=== PATIENT | male | born 1935 | race Caucasian/White ===

== ENCOUNTER 2019-08-12 09:12 | Emergency (ER) | payer OTHER, MEDICARE ==
[~2019-08-12] VITALS: Ht 175.3 cm; Wt 95.2 kg
[2019-08-12] MEDS ORDERED: AKWA Tears15 ML BOTHEYES (09:29)
[2019-08-12] MEDS ORDERED: ACET500 PO (09:29)
[2019-08-12] MEDS ORDERED: OMEP20ER PO (09:29)
[2019-08-12] MEDS ORDERED: Simvastatin10 MG PO (09:29)
[2019-08-12] MEDS ORDERED: LEVSOD50 PO (09:30)
[2019-08-12] MEDS ORDERED: LIDO5TO TOP (09:30)
[2019-08-12] MEDS ORDERED: ZESTORETIC 20-1 EAC1 PO (09:30)
[2019-08-12] MEDS ORDERED: EFUDEX40 GM TOP (09:31)
[2019-08-12 10:33] LABS: BASOPHILS ABSOLUTE AUTO 0.03 K/mm3 (0.00-0.23); BASOPHILS PERCENT AUTO 0 % (0-2); EOSINOPHILS PERCENT AUTO 0 % (0-6); Hematocrit 41.2 % (37.0-53.0); Hemoglobin 14.1 g/dL (13.5-17.5); IMMATURE GRAN ABSOLUTE AUTO 0.06 K/mm3 (0.00-0.10); IMMATURE GRAN PERCENT AUTO 0 % (0-1); LYMPHOCYTES ABSOLUTE AUTO 0.52 K/mm3 (0.84-5.20); LYMPHOCYTES PERCENT AUTO 3 % (21-46); MONOCYTES ABSOLUTE AUTO 0.74 K/mm3 (0.16-1.47); MONOCYTES PERCENT AUTO 4 % (4-13); Mean Corpuscular HGB Conc 34.2 g/dL (31.5-36.5); Mean Corpuscular Volume 97 fL (80-100); Mean Platelet Volume 12.1 fL (9.1-12.4); NEUTROPHILS ABSOLUTE AUTO 15.73 K/mm3 (1.96-9.15); NEUTROPHILS PERCENT AUTO 92 % (41-73); Platelet Count 143 K/mm3 (150-400); RDW Coefficient Variation 13.6 % (11.7-14.2); RDW Standard Deviation 48.9 fL (35.1-46.3); Red Blood Cell Count 4.27 M/mm3 (4.30-5.90); White Blood Cell Count 17.08 K/mm3 (4.00-11.30)
[2019-08-12 10:51] LABS: Albumin, Blood 3.1 g/dL (3.4-5.0); Albumin/Globulin Ratio 0.8 (0.8-1.8); Bilirubin, Total 1.1 mg/dL (0.1-1.0); Bun/Creatinine Ratio 20.6 (12.0-20.0); Calcium, Blood 8.4 mg/dL (8.5-10.1); Creatinine, Blood 1.26 mg/dL (0.60-1.20); Globulin, Blood 3.7 g/dL (2.2-4.0); Potassium, Blood 3.8 mmol/L (3.5-5.5); Total Protein, Blood 6.8 g/dL (6.4-8.2)
[2019-08-12 11:48] LABS: Source, Urine Clean Catch
[2019-08-12 11:50] LABS: Bilirubin, Urine Neg (Neg); Blood, Urine 4+ (Neg); Glucose Qualitative, Urine Neg (Neg); Ketones, Urine 1+ (Neg); Leukocyte Esterase, Urine 1+ (Neg); Nitrite, Urine Pos (Neg); Protein, Urine 2+ (Neg); Specific Gravity, Urine 1.015 (1.003-1.022); Urobilinogen, Urine 1+ (Normal); pH, Urine 6.5 (5.0-8.0)
[2019-08-12 12:02] LABS: Appearance, Urine Clear (Clear); Color, Urine Yellow (P-Yellow)
[2019-08-12 12:04] LABS: Amorphous Light (0-Heavy); Bacteria Many /hpf; Mucus Light (0-Heavy); Squamous Epithelial Cells Rare /hpf (Few)
[2019-08-12] MEDS ORDERED: Keflex500 MG PO (12:13)
[2019-08-12] MEDS ORDERED: ONDA4ODT MM (12:13)
[2019-08-12] MEDS ORDERED: TRAM50 PO (12:13)
== END 2019-08-12 13:55 | disposition home or self-care (01) ==
LOC: ER 09:12
PROVIDERS: Physician Assistant
DX: N12 Tubulo-interstitial nephritis, not specified as acute or chronic (principal); Z79.899 Other long term (current) drug therapy
CPT/HCPCS: 36415; 74176; 80053; 81001; 85025; 87077; 87086; 87147; 87186; 96361; 96374; 96375; 99284-25; J2405; J3010; J7030

== ENCOUNTER 2019-08-15 08:31 | Inpatient (IN) | payer OTHER, MEDICARE ==
[~2019-08-15] VITALS: Ht 175.3 cm; Wt 110.0 kg
[~2019-08-15 08:31] MED LIST: ACET500 PO; AKWA Tears15 ML BOTHEYES; EFUDEX40 GM TOP; Keflex500 MG PO; LEVSOD50 PO; LIDO5TO TOP; OMEP20ER PO; ONDA4ODT MM; Simvastatin10 MG PO; TRAM50 PO; ZESTORETIC 20-1 EAC1 PO
[2019-08-15 09:14] LABS: Source, Urine Catheter
[2019-08-15 09:17] LABS: BASOPHILS ABSOLUTE AUTO 0.11 K/mm3 (0.00-0.23); BASOPHILS PERCENT AUTO 1 % (0-2); EOSINOPHILS ABSOLUTE AUTO 0.07 K/mm3 (0.00-0.68); EOSINOPHILS PERCENT AUTO 0 % (0-6); Hematocrit 42.8 % (37.0-53.0); Hemoglobin 14.6 g/dL (13.5-17.5); IMMATURE GRAN ABSOLUTE AUTO 0.27 K/mm3 (0.00-0.10); IMMATURE GRAN PERCENT AUTO 1 % (0-1); LYMPHOCYTES ABSOLUTE AUTO 1.18 K/mm3 (0.84-5.20); LYMPHOCYTES PERCENT AUTO 5 % (21-46); MONOCYTES ABSOLUTE AUTO 1.35 K/mm3 (0.16-1.47); MONOCYTES PERCENT AUTO 6 % (4-13); Mean Corpuscular HGB 32.4 pg (26.0-34.0); Mean Corpuscular HGB Conc 34.1 g/dL (31.5-36.5); Mean Corpuscular Volume 95 fL (80-100); NEUTROPHILS ABSOLUTE AUTO 19.56 K/mm3 (1.96-9.15); NEUTROPHILS PERCENT AUTO 87 % (41-73); Platelet Count 150 K/mm3 (150-400); RDW Standard Deviation 49.1 fL (35.1-46.3); White Blood Cell Count 22.54 K/mm3 (4.00-11.30)
[2019-08-15 09:22] LABS: Mean Platelet Volume 14.5 fL (9.1-12.4)
[2019-08-15 09:28] LABS: Appearance, Urine Hazy (Clear); Bilirubin, Urine Neg (Neg); Blood, Urine 3+ (Neg); Color, Urine Yellow (P-Yellow); Glucose Qualitative, Urine Neg (Neg); Ketones, Urine 1+ (Neg); Leukocyte Esterase, Urine 1+ (Neg); Nitrite, Urine Pos (Neg); Protein, Urine 2+ (Neg); Urobilinogen, Urine 1+ (Normal)
[2019-08-15 09:29] LABS: White Blood Cells, Urine 0-2 /hpf (0-5)
[2019-08-15 09:30] LABS: Albumin, Blood 2.5 g/dL (3.4-5.0); Albumin/Globulin Ratio 0.6 (0.8-1.8); Bilirubin, Total 0.9 mg/dL (0.1-1.0); Bun/Creatinine Ratio 21.7 (12.0-20.0); Calcium, Blood 8.6 mg/dL (8.5-10.1); Creatinine, Blood 3.69 mg/dL (0.60-1.20); Globulin, Blood 4.2 g/dL (2.2-4.0); Potassium, Blood 3.6 mmol/L (3.5-5.5); Total Protein, Blood 6.7 g/dL (6.4-8.2)
[2019-08-15 09:30] LABS: Amorphous Mod (0-Heavy); Bacteria Few /hpf; Mucus Light (0-Heavy); Squamous Epithelial Cells Not Seen /hpf (Few)
[2019-08-15 09:31] LABS: Granular Casts 0-2 /lpf (0); Transitional Epithelial Cells Few /hpf (0-Rare); WBC Cast Rare /lpf (0)
[2019-08-15 09:40] LABS: Troponin I 1.6 ng/mL (0.000-0.040)
[2019-08-15 10:51] LABS: Magnesium, Blood 2.6 mg/dL (1.6-2.4); Phosphorus, Blood 6.5 mg/dL (2.5-4.9)
[2019-08-15 11:31] LABS: International Normalized Ratio 1.05; Prothrombin Time Results 11.2 Sec (9.7-11.5)
[2019-08-15 12:57] LABS: Free Thyroxine 1.28 ng/dL (0.70-1.60)
[2019-08-15 12:58] LABS: Triiodothyronine, Free 1.77 pg/mL (2.18-3.98)
--- NOTE | 2019-08-15 13:21 | NUR ---
ADMIT PT ARRIVED TO ICU 11 FROM ED. PT ALERT, ORIENTED TO PERSON, PLACE, DATE. AMIODARONE INFUSING, HR AFIB IN THE 130-150S. SBP IN THE 60S. DR. DIAZ TO THE BEDSIDE AND GAVE ORDER FOR FLUID BOLUS. IV IN LA WITH SALINE GOING INFILTRATED, POWERGLIDE STARTED BY ISABELLA GEORGES. PT'S SON MICHAEL CALLED AND WAS GIVEN UPDATE. WILL START HEPARIN SOON POWERGLIDE STARTED. DR. CALLES NOTIFIED OF CONSULT.
[2019-08-15] MEDS ORDERED: FISH OIL 1,001000 MG PO (15:18)
[2019-08-15] MEDS ORDERED: ASCO500 PO (15:18)
[2019-08-15] MEDS ORDERED: Garlic Oil1000 MG PO (15:19)
[2019-08-15] MEDS ORDERED: LIDO5TO TOP (15:21)
[2019-08-15] MEDS ORDERED: MELO7.5 PO (15:22)
[2019-08-15] MEDS ORDERED: CENTRUM SILVER1 EAC2 PO (15:22)
[2019-08-15] MEDS ORDERED: OXYM.05NI (15:23)
[2019-08-15] MEDS ORDERED: Aqua Care237 ML TOP (15:25)
[2019-08-15] MEDS ORDERED: Triamcinolone A15 G3 TOP (15:25)
[2019-08-15] MEDS ORDERED: Gormel75 GM TOP (15:26)
--- NOTE | 2019-08-15 16:54 | NUR ---
SHIFT SUMMARY PT HAS BEEN RESTING IN BED SINCE ARRIVAL. HE IS STILL ABLE TO ANSWER ALL ORIENTATION QUESTIONS, BUT WHEN CONVERSING WITH HIM HE CHANGES THE TOPIC INAPPROPRIATELY OR GIVES RANDOM ANSWERS THAT MAKE IT APPEAR HE DOES HAVE SOME CONFUSION. TALKED WITH PT'S SON AND HE STATES THAT PT HAS HAD SOME INCREASING CONFUSION OVER THE LAST FEW YEARS. PT ALSO SEEMS TO BE A LITTLE HARD OF HEARING WELL, WHICH COULD BE CONTRIBUTING. PT'S BP REMAINS SOFT, BUT HAS IMPROVED SINCE THE BOLUS. DR. CALLES CAME BY AND EVALUATED PT. RATE CONTINUES TO BE IN THE 130S. LUNGS CLEAR, RA. DR. DIAZ OK'D FOR PT TO HAVE ICE CHIPS. MARCUM DRAINING DARK YELLOW URINE. CONTINUING TO MONITOR.
--- NOTE | 2019-08-15 21:05 | NUR ---
ASSUMED PT CARE FROM ISABELLA RIOJAS PT SITTING UP IN BED RESTING. AFIB WITH RVR NOTED ON ARCHITECTURAL JOB CAPTAIN. BLOOD PRESSURES SYSTOLIC 90'S WITH MAP'S 70'S. AMIODARONE INFUSING AT 0.5 MG/MIN; HEPARIN AT 13 UNITS/KG/HR. PT APPEARS ALERT AND ORIENTED, BUT WITH NOTED CONFUSION/FORGETFULNESS. PT DENIES ANY DEMENTIA HX AND JUST STATES HE "GETS LOST, BUT HE ALWAYS FINDS A WAY BACK." PT IS VERY PLEASANT AND COOPERATIVE WITH CARES. FAMILY AT BEDSIDE. CALL LIGHT WITHIN REACH.
--- NOTE | 2019-08-16 00:05 | NUR ---
PALLIATIVE CARE/SOCIAL SERVICE CONSULT FAMILY VOICED CONCERNS REGARDING PT NOT BEING ABLE TO WALK THE LAST WEEK SINCE BEING SICK. FAMILY HAS HAD TO ASSIST WITH ADL'S IN WHICH IT HAS BECOME TOO HARD ON THEM PHYSICALLY PT IS COMPLETELY DEPENDENT ON ASSIST. THEREFORE, THEY ARE WANTING PT TO RECEIVE THERAPY HERE IN ORDER TO GET PT BACK TO BASELINE. HOWEVER, THEY ARE ALSO REALISTIC THAT PT MAY NEED MORE THERAPY OUTPATIENTLY WELL. OPTIONS WERE DISCUSSED AND FAMILY IS OKAY WITH PT GOING TO A REHAB FACILITY/FPC IF NEEDED. CONCERNS WERE ALSO MENTIONED REGARDING PT'S WANTING TO LET SON MAKE DECISIONS. THEREFORE, WOULD LIKE TO SPEAK WITH PALLIATIVE CARE IN REGARDS TO MAKING THAT HAPPEN. SON RAISES CONCERN THAT HIS MOM ISN'T ABLE TO STICK WITH HER DECISIONS HIS FATHER, THE PATIENT, IS VERY ASSERTIVE AND INTIMIDATES HER. THEREFORE, SON IS WANTING TO TALK WITH PALLIATIVE CARE IN PRIVATE PRIOR TO SEEING PT TOMORROW.
[2019-08-16 03:21] LABS: BASOPHILS ABSOLUTE AUTO 0.07 K/mm3 (0.00-0.23); BASOPHILS PERCENT AUTO 0 % (0-2); EOSINOPHILS ABSOLUTE AUTO 0.16 K/mm3 (0.00-0.68); EOSINOPHILS PERCENT AUTO 1 % (0-6); Hemoglobin 12.8 g/dL (13.5-17.5); IMMATURE GRAN ABSOLUTE AUTO 0.54 K/mm3 (0.00-0.10); IMMATURE GRAN PERCENT AUTO 3 % (0-1); LYMPHOCYTES ABSOLUTE AUTO 1.22 K/mm3 (0.84-5.20); LYMPHOCYTES PERCENT AUTO 6 % (21-46); MONOCYTES ABSOLUTE AUTO 1.21 K/mm3 (0.16-1.47); MONOCYTES PERCENT AUTO 6 % (4-13); Mean Corpuscular HGB 32.7 pg (26.0-34.0); Mean Corpuscular HGB Conc 34.6 g/dL (31.5-36.5); Mean Corpuscular Volume 94 fL (80-100); Mean Platelet Volume 13.5 fL (9.1-12.4); NEUTROPHILS ABSOLUTE AUTO 18.61 K/mm3 (1.96-9.15); NEUTROPHILS PERCENT AUTO 85 % (41-73); Platelet Count 149 K/mm3 (150-400); RDW Coefficient Variation 14.1 % (11.7-14.2); RDW Standard Deviation 48.9 fL (35.1-46.3); Red Blood Cell Count 3.92 M/mm3 (4.30-5.90); White Blood Cell Count 21.81 K/mm3 (4.00-11.30)
[2019-08-16 03:37] LABS: Albumin, Blood 2.1 g/dL (3.4-5.0); Albumin/Globulin Ratio 0.6 (0.8-1.8); Bilirubin, Total 0.6 mg/dL (0.1-1.0); Bun/Creatinine Ratio 27.4 (12.0-20.0); Calcium, Blood 7.5 mg/dL (8.5-10.1); Creatinine, Blood 3.21 mg/dL (0.60-1.20); Globulin, Blood 3.8 g/dL (2.2-4.0); Potassium, Blood 3.9 mmol/L (3.5-5.5); Total Protein, Blood 5.9 g/dL (6.4-8.2)
--- NOTE | 2019-08-16 06:23 | NUR ---
END OF SHIFT SUMMARY PT SLEPT T/O MOST OF SHIFT. REMAINS AFIB WITH RVR; HR 130-150'S. BLOOD PRESSURES REMAIN STABLE; SEE FLOWSHEET. AMIODARONE GTT CONTINUES AT 0.5MG/MIN AND HEPARIN ADJUSTED PER PHARMACY TO 16 UNITS/KG/HR. DR. DIAZ ORDERED A ONE TIME DOSE OF VANCO PER PHARMACY CONSULT D/T POSITIVE BLOOD CULTURES FOR GRAM POSITIVE COCCI IN CLUSTERS. PT ALSO REMAINS ON ROCEPHIN DAILY. PT HAS BEEN PLEASANT AND COOPERATIVE WITH CARES. ABLE TO MAKE HIS NEEDS KNOWN DESPITE BEING FORGETFUL AND CONFUSED AT TIMES. OCCASIONAL NONSENSICAL SPEECH. SON STAYED AT BEDSIDE ALL NIGHT; APPROPRIATE WITH CARES. CALL LIGHT WITHIN REACH. WILL CONTINUE TO MONITOR UNTIL REPORT IS HANDED OFF TO ONCOMING RN.
--- NOTE | 2019-08-16 09:51 | NUR ---
CARE ASSUMED CARE AND REPORT ASSUMED FROM YONI MASON. PT SLEEPING BUT EASILY AROUSABLE. C/O CHRONIC PAIN TO L ANKLE FROM INJURY YEARS AGO. SON AT BEDSIDE AND UPDATED ON PLAN. AFIB, HR 120-150S. MD CALLES BEDSIDE AT SHIFT CHANGE AND AWARE OF HR AND BP. VERBAL ORDERS TO ADMINISTER DIGOXIN 0.125 IV, MAINTAIN K+ > 4.0, MAINTAIN MAG > 2.0, AND ADMINISTER ORAL AMIODARONE SINCE GTT WILL BE TURNED OFF SOON. LUNG SOUNDS HAVE EXPIRATORY WHEEZES IN UPPER TODD. AFEBRILE. DIGOXIN IVP GIVEN ALONG WITH SUPPLEMENTAL POTASSIUM. MAG LEVEL RAN THIS AM AND IS >2.0. PT REMAINS IN AFIB, HR 120-140. AMIODARONE GTT CONTINUES TO INFUSE AT 0.5MG AT THIS TIME. NS MIV INFUSING AT 75ML/HR PER ORDER. SPO2 95% ON RA. WILL CONTINUE TO MONITOR.
--- NOTE | 2019-08-16 12:45 | NUR ---
met with patients and son to review plan of care. pt is escalating in his behaviours and aggitation at night. is exhaused and frail. [facility] Review with child care nurse. pt does not have a formal diagnosis and willneed cardiac care. dental office manager will follow up with needs for possible placement and medicaid.
--- NOTE | 2019-08-16 15:04 | NUR ---
REASSESSMENT PT WHEEZING THROUGHOUT. ALBUTEROL TREATMENTS ORDERED FOR PRN. PT LUNG SOUNDS IMPROVED AFTER TREATMENT. AMIODARONE GTT DISCONTINUED AT 1300 AFTER 24 HOURS OF INFUSION. PT CONTINUES TO RECEIVE AMIODARONE PO. MD CALLES CALLED WITH UPDATE AT 1500. T.O. TO ADMINISTER METOPROLOL 25 MG PO ONCE AND CONTINUE AMIODARONE SINCE BP HAS INCREASED. LAST FEW MAPS RANGE FROM 90-110. WILL CONTINUE TO MONITOR.
--- NOTE | 2019-08-16 16:51 | NUR ---
Echocardiogram completed.
--- NOTE | 2019-08-16 17:00 | NUR ---
Echocardiogram completed.
--- NOTE | 2019-08-16 18:16 | NUR ---
SHIFT SUMMARY PT HAS REMAINED IN BED DURING SHIFT DUE TO FATIGUE AND ELEVATED HR. HAS REMAINED IN AFIB, HR 100-150 THROUGHOUT SHIFT. AMIODARONE GTT INFUSED UNTIL 1300 TODAY AND PT HAS NOW TRANSITIONED TO ORAL. DIGOXIN GIVEN THIS AM; NO CHANGE. ESMOLOL GTT STARTED THIS EVENING; INFUSING AT 25 MCG/KG AT THIS TIME. FAMILY UPDATED THROUGHOUT DAY. LUNG SOUNDS WHEEZY INTERMITTENTLY DURING SHIFT. PT HAS RECIEVED ALBUTEROL TREATMENT NEEDED. HEPARIN GTT CONTINUES TO INFUSE. PT HAS COMPLAINED OF L FOOT AND ANKLE PAIN WITH ANY PALPATION OR MOVEMENT; XRAYS OBTAINED. PT STATES HE HAS NOT HAD BOWEL MOVEMENT IN APPROX 5-6 DAYS; WILL START BOWEL REGIMEN THIS EVENING. PT REFUSED BEDBATH AND LINEN CHANGE TODAY. AFEBRILE DURING SHIFT. ECHO OBTAINED. WILL GIVE BEDSIDE, HANDOFF REPORT TO SHAE MASON.
--- NOTE | 2019-08-16 19:15 | NUR ---
ASSUMED CARE BEDSIDE REPORT RECIEVED. PT IS LAYING IN BED, AWAKE, ALERT, AND ORIENTED. PT CONFUSED AT TIMES. NO FAMILY AT BEDSIDE. PT REPORTS EXTREME PAIN TO LEFT LOWER EXTREMITY WITH TOUCH OR MOVEMENT. VITAL SIGNS STABLE. PT ON ROOM AIR. HR AFIB 110-130'S. ESMOLOL GTT INFUSING AT 25 MCG/KG/MIN. HEPARIN GTT INFUSING AT 18 UNITS/KG/HR. MARCUM IN PLACE WITH YELLOW OUTPUT NOTED. WILL CONTINUE TO MONITOR.
--- NOTE | 2019-08-17 00:55 | NUR ---
CONVERTED TO NSR PT NOTED TO CONVERT FROM AFIB TO NSR IN THE 60'S AT 0040. ESMOLOL GTT TURNED OFF AT THIS TIME. BP STABLE.
[2019-08-17 03:42] LABS: Hematocrit 35.7 % (37.0-53.0); Hemoglobin 12.2 g/dL (13.5-17.5); Mean Corpuscular HGB 32.4 pg (26.0-34.0); Mean Corpuscular HGB Conc 34.2 g/dL (31.5-36.5); Mean Corpuscular Volume 95 fL (80-100); Mean Platelet Volume 12.9 fL (9.1-12.4); Platelet Count 213 K/mm3 (150-400); RDW Coefficient Variation 14.3 % (11.7-14.2); RDW Standard Deviation 49.9 fL (35.1-46.3); Red Blood Cell Count 3.76 M/mm3 (4.30-5.90)
[2019-08-17 03:58] LABS: Bun/Creatinine Ratio 30.5 (12.0-20.0); Calcium, Blood 7.7 mg/dL (8.5-10.1); Creatinine, Blood 2.49 mg/dL (0.60-1.20); Magnesium, Blood 2.7 mg/dL (1.6-2.4); Phosphorus, Blood 4.3 mg/dL (2.5-4.9); Potassium, Blood 3.8 mmol/L (3.5-5.5)
[2019-08-17 04:37] LABS: BAND PERCENT MAN 7 % (0-8); BASOPHILS PERCENT MAN 0 % (0-2); EOSINOPHILS PERCENT MAN 0 % (0-6); LYMPHOCYTES PERCENT MAN 4 % (21-46); METAMYELOCYTE PERCENT MAN 2 % (0-0); MONOCYTES ABSOLUTE MAN 0.75 K/mm3 (0.16-1.47); MONOCYTES PERCENT MAN 3 % (4-13); MYELOCYTE ABSOLUTE MAN 0.25 K/mm3 (0.00-0.00); MYELOCYTE PERCENT MAN 1 % (0-0); NEUTROPHILS ABSOLUTE MAN 22.59 K/mm3 (1.96-9.15); SEG NEUTROPHILS PERCENT MAN 83 % (41-73); TOTAL CELLS COUNTED 100
--- NOTE | 2019-08-17 05:42 | NUR ---
SHIFT SUMMARY NO ACUTE CHANGES THIS SHIFT. PT HAS REMAINED AWAKE FOR MOST OF THE NIGHT. PT IS ALERT AND ORIENTED WITH SOME PERIODS OF CONFUSION. VITAL SIGNS HAVE REMAINED STABLE. PT HAS REMAINED IN NSR, HR 60-70'S. ESMOLOL GTT REMAINS ON STANDBY. PT ON ROOM AIR. PG TO LV C/D/I. HEPARIN GTT INFUSING AT 18 UNITS/KG/HR PER PHARMACY. PT ASSISTED WITH REPOSITIONING. PT CONTINUES TO HAVE PAIN AND SENSITIVITY TO LEFT LOWER EXTREMITY. PT MED PER EMAR, AND ICE APPLIED TO LEFT ANKLE PT WOULD TOLERATE. LEFT ANKLE REMAINS SWOLLEN, UNCHANGED SINCE BEGINNING OF SHIFT. NO FAMILY AT BEDSIDE AT THIS TIME. WILL CONTINUE TO MONITOR AND REPORT OFF TO ONCOMING RN.
--- NOTE | 2019-08-17 08:59 | NUR ---
DR. BOOTHE SPOKE WITH DR. BOOTHE REGARDING CONVERSION TO NORMAL SINUS RHYTHM. PREVIOUSLY CONSIDERED MOHIT AND CARDIOVERSON CANCELLED. OK TO EAT PER DR. BOOTHE.
--- NOTE | 2019-08-17 09:30 | NUR ---
CARE ASSUMED REPORT RECEIVED, CARE ASSUMED AT 0700 FROM ISABELLA OLVERA. PT ASLEEP DURING REPORT, SON AT BEDSIDE. VITALS STABLE. SEE SHIFT ASSESSMENT. BEDBATH COMPLETE PT REPORTS THINKING HE HAS HAD A BOWEL MOVEMENT. NO BOWEL MOVEMENT PRESENT. SETUP ASSIST FOR BREAKFAST, PT REPORTS MINIMAL APPETITE. MEDS TAKEN IN APPLESAUCE VERY SLOWLY PT BECOMES SHORT OF BREATH AFTER EACH BITE. STATES HE WILL WORK ON BREAKFAST SLOWLY, BUT WANTS TO TAKE NAPS IN BETWEEN. SETUP ASSIST WITH BED CONTROLS, PT AGREES TO ENSURE HEAD IS UP WHILE EATING. CALL LEFT ALSO LEFT IN REACH.
--- NOTE | 2019-08-17 11:04 | NUR ---
DR. MJ BARKER TO BEDSIDE FOR ASSESSMENT
--- NOTE | 2019-08-17 13:30 | NUR ---
briefly met with son. he is optimistic about his fathers progress. will update plan of care on monday will need intermediate plan he is high risk for readmission.
--- NOTE | 2019-08-17 14:53 | NUR ---
DR. NOREEN SORTO TO BEDSIDE FOR ASSESSMENT. PLAN FOR TRANSFER TO PCU
--- NOTE | 2019-08-17 17:00 | NUR ---
DR. TL BOOTHE TO BEDSIDE FOR ASSESSMENT. SPOKE WITH PT REGARDING HIS NEED FOR VALVE REPLACEMENT ONCE INFECTION IMPROVES. FOR NOW, CONTINUE WITH CURRENT PLAN OF CARE. SEE DR. BOOTHE PROGRESS NOTE.
--- NOTE | 2019-08-17 19:34 | NUR ---
SUMMARY VITALS STABLE. HEPARIN GTT CONTINUES PER PHARMACY TITRATION. CONFIRMED WITH DR. BOOTHE TO KEEP ON UNTIL PO ANTICOAGULATION IS STARTED. SON AT BEDSIDE AND INVOLVED IN CARE. PT EXPRESSING NEEDS CLEARLY. PT BECOMES SHORT OF BREATH WITH ADL'S. PT/OT EVALUATION FOR TOMORROW. PT HAS HAD SOMEWHAT BETTER APPETITE THIS EVENING, AND IS FEEDING HIMSELF MORE THAN HE HAD DURING BREAKFAST. HE REPORTS FEELING SOME IMPROVEMENT. GOOD OUTPUT FROM MARCUM CATHETER. STILL NO BOWEL MOVEMENT, SEE EMAR FOR BOWEL CARE REGIME.
--- NOTE | 2019-08-17 19:37 | NUR ---
REPORT TO ISABELLA ORONA TO ASSUME CARE
--- NOTE | 2019-08-17 21:22 | NUR ---
PT RESTING QUIETLY RECLINING IN BED, DENIES N/V, DENIES CP/PRESSURE, STATES THAT HIS BREATHING IS OK, STATES THAT HIS PAIN IS WELL CONTROLLED WITH POSITIONING AT THIS TIME HOWEVER IS AGREEABLE TO TRAMADOL AND TYLENOL IN ORDER TO PROMOTE COMFORT FOR SLEEP. HE IS SPEAKING IN SHORT SENTENCES, MODERATE INCREASED WORK OF BREATHING IS VISIBLE WITH INCREASED ACTIVITY, NO INCREASED WORK OF BREATHING IS NOTED WITH PT AT REST, SATS ARE MID 90S ON ROOM AIR, RESP RATE HIGH TEENS LOW 20S. HRR, SINUS ON MONITOR, RATE 70S AT THIS TIME, PRESSURE MAINTAINING, TRACE TO +1 EDEMA IS NOTED GENERALIZED, NON-PITTING, SKIN IS PWD WITH BRISK CAP REFILL AT THIS TIME. ABD FIRM, ACTIVE BOWEL TONES X 4, NO GRIMACING OR GUARDING WITH PALPATION, PT DENIES PAIN. MARCUM CATH IN PLACE DRAINING CLEAR DARK YELLOW URINE TO GRAVITY, CATH CARE DONE AT THIS TIME.
--- NOTE | 2019-08-18 06:48 | NUR ---
PT RESTS QUIETLY THROUGHOUT SHIFT, REPORTS THAT HE SLEPT WELL, VITAL SIGNS REMAIN STABLE, PT DOES USE CALL LIGHT APPROPRIATELY THROUGHOUT NOC TO MAKE NEEDS KNOWN, REQUESTS TURNS APPROXIMATELY EVERY HOUR WHILE AWAKE. LUNGS CONT WITH INTERMITTENT EXPIRATORY WHEEZES HOWEVER PT DOES MAINTAIN SATS ON ROOM AIR TO MID 90S, MILD INCREASED WORK OF BREATHING WITH ASSISTED POSITION CHANGE, MODERATE INCREASED WORK OF BREATHING WITH 1 ASSIST WITH POSITION CHANGES. CONTINUES IN SINUS RHYTHM, PRESSURE MAINTAINING. BOWEL MOVEMENT X 2 THIS SHIFT BOTH SMALL BROWN, PT REPORTS SECOND BM "LITTLE ROUGH" OTHERWISE NO ACUTE CHANGES THIS SHIFT.
[2019-08-18 06:58] LABS: Hematocrit 34.4 % (37.0-53.0); Hemoglobin 11.9 g/dL (13.5-17.5); Mean Corpuscular HGB 32.4 pg (26.0-34.0); Mean Corpuscular HGB Conc 34.6 g/dL (31.5-36.5); Mean Corpuscular Volume 94 fL (80-100); Mean Platelet Volume 12.5 fL (9.1-12.4); Platelet Count 254 K/mm3 (150-400); RDW Coefficient Variation 14.4 % (11.7-14.2); RDW Standard Deviation 50.1 fL (35.1-46.3); Red Blood Cell Count 3.67 M/mm3 (4.30-5.90); White Blood Cell Count 28.27 K/mm3 (4.00-11.30)
[2019-08-18 07:14] LABS: Albumin, Blood 2.1 g/dL (3.4-5.0); Anion Gap 11 mmol/L (6-16); Blood Urea Nitrogen 66 mg/dL (8-24); Bun/Creatinine Ratio 34.6 (12.0-20.0); CO2, Blood 18 mmol/L (21-32); Chloride, Blood 105 mmol/L (98-108); Creatinine, Blood 1.91 mg/dL (0.60-1.20); Glomerular Filtration Rate 36 (60-); Glucose, Blood 121 mg/dL (70-99); Potassium, Blood 3.6 mmol/L (3.5-5.5); Sodium, Blood 134 mmol/L (136-145)
[2019-08-18 07:33] LABS: BAND PERCENT MAN 10 % (0-8); BASOPHILS PERCENT MAN 0 % (0-2); EOSINOPHILS ABSOLUTE MAN 0.28 K/mm3 (0.00-0.68); EOSINOPHILS PERCENT MAN 1 % (0-6); LYMPHOCYTES ABSOLUTE MAN 1.41 K/mm3 (0.84-5.20); LYMPHOCYTES PERCENT MAN 5 % (21-46); METAMYELOCYTE ABSOLUTE MAN 0.56 K/mm3 (0.00-0.00); METAMYELOCYTE PERCENT MAN 2 % (0-0); MONOCYTES ABSOLUTE MAN 2.82 K/mm3 (0.16-1.47); MONOCYTES PERCENT MAN 10 % (4-13); MYELOCYTE ABSOLUTE MAN 1.13 K/mm3 (0.00-0.00); MYELOCYTE PERCENT MAN 4 % (0-0); NEUTROPHILS ABSOLUTE MAN 22.05 K/mm3 (1.96-9.15); SEG NEUTROPHILS PERCENT MAN 68 % (41-73); TOTAL CELLS COUNTED 100
--- NOTE | 2019-08-18 08:57 | NUR ---
CARE ASSUMED REPORT RECEIVED, CARE ASSUMED AT 0700 FROM ISABELLA ORONA. PT ASLEEP ON ROUNDS, AROUSES EASILY FOR ASSESSMENT. VITALS STABLE. AUDIBLE WHEEZES WORSE FROM YESTERDAY. PT TAKING LONGER TO RECOVER AFTER ADL'S. PT REPORTS FEELING VERY SLEEPY TODAY, MINIMAL APPETITE. AGREEABLE TO TAKE PILLS WITH APPLESAUCE, BUT DECLINES FURTHER BREAKFAST. SAID HE WILL EAT ON IT AFTER A NAP. EDUCATED PT REGARDING PLAN OF CARE, CURRENT ILLNESS, MEDICATIONS AND SIDE EFFECTS. PT AGREEABLE BUT CONTINUES TO REQUEST NAP AT THIS TIME. QUIET TIME PROVIDED. SON AT BEDSIDE AND PROVIDING ENCOURAGEMENT/SUPPORT TO PATIENT. HEPARIN GTT CONTINUES PER ORDERS.
--- NOTE | 2019-08-18 14:20 | NUR ---
SUMMARY SINCE PREVIOUS NOTE, PT HAS CONTINUED TO BE ALERT AND ORIENTED BUT HAS LITTLE MOTIVATION. PT REPORTS FEELING EXTREMELY SLEEPY AND REQUESTING TO NAP MAJORITY OF DAY AND AFTERNOON. ENCOURAGED PT TO EAT, REPOSITION AND DO EXERCISES IN BED. PT'S SON, MICHAEL AT BEDSIDE AND ENCOURAGING PATIENT. PT HAD OTHER VISITORS IN THIS MORNING ALSO. DR. BOOTHE TO BEDSIDE FOR REPEAT ASSESSMENT AND TO DISCUSS PLAN. VITALS STABLE THROUGHOUT SHIFT. PT EDUCATED THROUGHOUT DAY AND AGREEABLE TO PLAN OF CARE. PT TRANSPORTED BY [facility] WITH HEPARIN GTT INFUSING PER ORDERS. PT'S SONMICHAEL AT SIDE.
--- NOTE | 2019-08-18 14:25 | NUR ---
TRANSFER PT MADE MEDICAL STATUS WITH TELEMETRY PER DR. BARKER. NOTIFIED BY LOL[facility], CHARGE TO THAN PT TO TRANSFER TO ROOM 230. REPORT GIVEN TO RN TO ASSUME CARE AT THIS TIME.
--- NOTE | 2019-08-18 15:38 | NUR ---
ARRIVAL TO UNIT PT ARRIVAL TO UNIT FROM ICU. ALERT AND ORIENTED X4, BUT IS FORGETFUL AT TIMES. BED ALARM IN PLACE FOR SAFETY. PT REPOSITIONED FOR COMFORT WITH PILLOWS UNDER X4 EXTREMITIES. HEP GTT INFUSNG PER ORDERS. ATTENDS IN PLACE AND ARE CLEAN AND DRY. MARCUM REMOVED IN ICU BEFORE ARRIVAL TO UNIT. URINAL A BEDSIDE. PT DENIES PAIN. LUNGS ARE WHEEZY T/O, BUT PT DENIES SOB AND SATS STABLE ON RA. ORIENTED TO ROOM AND UNIT. PT'S SON MICHAEL AT BEDSIDE FOR A SHORT TIME AND HAD TO LEAVE FOR WORK. CALL LIGHT WITHIN REACH.
[2019-08-19 05:32] LABS: Hematocrit 34.7 % (37.0-53.0); Mean Corpuscular HGB 32.9 pg (26.0-34.0); Mean Corpuscular HGB Conc 34.6 g/dL (31.5-36.5); Mean Corpuscular Volume 95 fL (80-100); Mean Platelet Volume 11.8 fL (9.1-12.4); Platelet Count 301 K/mm3 (150-400); RDW Coefficient Variation 14.4 % (11.7-14.2); Red Blood Cell Count 3.65 M/mm3 (4.30-5.90); White Blood Cell Count 32.62 K/mm3 (4.00-11.30)
[2019-08-19 06:03] LABS: Albumin, Blood 2.1 g/dL (3.4-5.0); Anion Gap 10 mmol/L (6-16); Blood Urea Nitrogen 55 mg/dL (8-24); CO2, Blood 20 mmol/L (21-32); Chloride, Blood 107 mmol/L (98-108); Creatinine, Blood 1.57 mg/dL (0.60-1.20); Glomerular Filtration Rate 45 (60-); Glucose, Blood 112 mg/dL (70-99); Phosphorus, Blood 3.4 mg/dL (2.5-4.9); Potassium, Blood 3.8 mmol/L (3.5-5.5); Sodium, Blood 137 mmol/L (136-145)
--- NOTE | 2019-08-19 07:25 | NUR ---
SHIFT SUMMARY PT RESTED MINIMALLY THIS NOC SHIFT. AAOX4. BACK DISCOMFORT DECREASED WITH TRAMADOL X1 THIS AM WITH GREAT AFFECT. NO NAUSEA/EMESIS. HEPARIN GTT INFUSING + NEW IV TO RUE FOR ABX. FREQUENT TURNS + INCONTINENT IN ATTENDS AT TIMES, ASSISTED WITH URINAL FOR OTHERS. NO ACUTE CHANGES OVER NIGHT. PT RESTING NOW THIS AM WITH CALL LIGHT IN REACH. REPORT TO DAY SHIFT RN.
--- NOTE | 2019-08-19 10:48 | NUR ---
DR CALLES IN TO SEE PT.
--- NOTE | 2019-08-19 16:00 | NUR ---
SUMMARY TURNING OVER CARE TO ARABELLA Elliott RN. NO ACUTE CHANGES T/O SHIFT. PT WORKED W/PT/OT. SAT UP IN CHAIR FOR BREAKFAST. NOW RESTING IN BED. MEDICATED PER ORDERS FOR 9 BACK PAIN W/TRAMADOL. LABS DRAWN FROM [facility] PER PROTOCOL. IVS FLUSH W/O DIFFICULTY. HEPARIN DRIP INFUSING PER ORDERS. CALL LIGHT IN REACH.
--- NOTE | 2019-08-19 19:26 | NUR ---
NO CHANGE SINCE RECEIVED REPORT FROM ISABELLA ACOSTA. REPORT GIVEN TO NOC ISABELLA CORTES
--- NOTE | 2019-08-20 04:37 | NUR ---
SHIFT SUMMARY: PT A&O X4. VSS. TELE SHOWS SINUS RHYTHM WITH FIRST DEGREE BLOCK. NO ADJUSTMENTS MADE TO HEPARIN GTT THIS SHIFT. INFUSING PER ORDERS. PT REPORTS OCC BACK PAIN WHICH HAS BEEN MANAGED WITH PO PAIN MEDS. REPOSITIONED T/O NIGHT. INCONTINENT WITH ATTENDS CHANGED PRN. VOIDING WELL. ЕЛЕНА PO MEDS IN APPLESAUCE. PT C/O SOB ONCE THIS SHIFT WHICH RESOLVED AFTER ELEVATED HOB. LUNGS CLEAR AND DIMINISHED THROUGHOUT.
[2019-08-20 05:01] LABS: Bun/Creatinine Ratio 37.4 (12.0-20.0); Calcium, Blood 8.2 mg/dL (8.5-10.1); Creatinine, Blood 1.47 mg/dL (0.60-1.20); Magnesium, Blood 2.5 mg/dL (1.6-2.4); Potassium, Blood 3.9 mmol/L (3.5-5.5)
--- NOTE | 2019-08-20 06:22 | NUR ---
HEP GTT ADJUSTED AT THIS TIME PER ORDERS
--- NOTE | 2019-08-20 08:35 | NUR ---
UPON ASSESSMENT THIS AM PT REPORTS SOB AND IS SITTING UP RIGHT IN BED. VSS AND NO ACUTE CHANGES IN TELE PER FANS CLERK CLAUDIA. PT DOES NOT APPEAR TO HAVE INCREASED WOB OR TO BE IN ANY ACUTE DISTRESS. LUNGS AT DIM AT BASES, SLIGHT CRACKLES HEARD AT LLL, OTHERWISE LUNGS CLEAR. PER NOC ISABELLA CORTES, PT RECEIVED BREATHING TX RECENTLY. DR. MENDOZA NOTIFED OF THESE FINDINGS, NO NEW ORDERS AT TIME, WILL CTM PT STATUS.
[2019-08-20 09:39] LABS: Hematocrit 35.3 % (37.0-53.0); Mean Corpuscular HGB 32.7 pg (26.0-34.0); Mean Corpuscular Volume 96 fL (80-100); Mean Platelet Volume 11.7 fL (9.1-12.4); Platelet Count 346 K/mm3 (150-400); RDW Coefficient Variation 14.6 % (11.7-14.2); RDW Standard Deviation 51.7 fL (35.1-46.3); Red Blood Cell Count 3.67 M/mm3 (4.30-5.90); White Blood Cell Count 36.81 K/mm3 (4.00-11.30)
[2019-08-20 10:11] LABS: BAND PERCENT MAN 1 % (0-8); BASOPHILS PERCENT MAN 0 % (0-2); EOSINOPHILS ABSOLUTE MAN 0.36 K/mm3 (0.00-0.68); EOSINOPHILS PERCENT MAN 1 % (0-6); LYMPHOCYTES PERCENT MAN 6 % (21-46); METAMYELOCYTE ABSOLUTE MAN 0.73 K/mm3 (0.00-0.00); METAMYELOCYTE PERCENT MAN 2 % (0-0); MONOCYTES PERCENT MAN 3 % (4-13); MYELOCYTE ABSOLUTE MAN 4.04 K/mm3 (0.00-0.00); MYELOCYTE PERCENT MAN 11 % (0-0); NEUTROPHILS ABSOLUTE MAN 27.97 K/mm3 (1.96-9.15); PROMYELOCYTE ABSOLUTE MAN 0.36 K/mm3 (0.00-0.00); PROMYELOCYTE PERCENT MAN 1 % (0-0); SEG NEUTROPHILS PERCENT MAN 75 % (41-73); TOTAL CELLS COUNTED 100
--- NOTE | 2019-08-20 10:56 | NUR ---
assumed care of patient at 0900 for Brenda MASON. Pt dozing off and on reports feeling better regarding his sob earlier. no acute distress noted, family at bedside.
--- NOTE | 2019-08-20 14:09 | NUR ---
HEPERIN DOSE CHANGED AT THIS TIME TO 29.9ML/HR PER PHARMACY
--- NOTE | 2019-08-20 19:33 | NUR ---
SUMMARY: NO ACUTE CHANGE TODAY. VSS, A/0, USING CALL LIGHT. TELE WNL. PT DID NOT COMPLAIN OF SOB THE REMAINDER OF SHIFT. ABLE TO WALK IN MORENO WITH PHYSICAL THERAPY, SEE NOTE. HEPARIN DRIP CONTINUES TO INFUSE THROUGH POWERGLIDE. PT FAMILY IN ROOM VARIOUS TIMES TODAY. PT TURNED AND ATTENDS CHANGED PRN. NO SAFETY CONCERNS AT THIS TIME. REPORT GIVEN TO SHAE MASON, SEBASTIAN
--- NOTE | 2019-08-21 05:53 | NUR ---
SHIFT SUMMARY: PT REPORTS TO BE FEELING BETTER THIS SHIFT. GIVEN ULTRAM FOR BACK PAIN. PT REPOSITIONED THROUGHOUT NIGHT. OUT OF BED TO BEDSIDE COMMODE THIS MORNING. PT HAD 1 SMALL BM. INCONTINENT AND VOIDING IN ATTENDS. VSS. HOSPITALIST NOTOFIED THIS SHIFT OF TRENDING HIGH WBC'S. THIS IS TO BE EXPECTED D/T PT RECIEVING DAILY STEROIDS. NO NEW ORDERS.
[2019-08-21 08:51] LABS: Hematocrit 34.8 % (37.0-53.0); Hemoglobin 11.8 g/dL (13.5-17.5); Mean Corpuscular HGB 32.7 pg (26.0-34.0); Mean Corpuscular HGB Conc 33.9 g/dL (31.5-36.5); Mean Corpuscular Volume 96 fL (80-100); Mean Platelet Volume 11.6 fL (9.1-12.4); Platelet Count 350 K/mm3 (150-400); RDW Coefficient Variation 14.6 % (11.7-14.2); RDW Standard Deviation 51.2 fL (35.1-46.3); Red Blood Cell Count 3.61 M/mm3 (4.30-5.90); White Blood Cell Count 38.62 K/mm3 (4.00-11.30)
[2019-08-21 09:05] LABS: Bun/Creatinine Ratio 36.6 (12.0-20.0); Calcium, Blood 8.2 mg/dL (8.5-10.1); Creatinine, Blood 1.34 mg/dL (0.60-1.20)
[2019-08-21 09:43] LABS: BAND PERCENT MAN 6 % (0-8); BASOPHILS PERCENT MAN 0 % (0-2); EOSINOPHILS PERCENT MAN 0 % (0-6); LYMPHOCYTES ABSOLUTE MAN 1.54 K/mm3 (0.84-5.20); LYMPHOCYTES PERCENT MAN 4 % (21-46); METAMYELOCYTE ABSOLUTE MAN 1.54 K/mm3 (0.00-0.00); METAMYELOCYTE PERCENT MAN 4 % (0-0); MONOCYTES ABSOLUTE MAN 2.31 K/mm3 (0.16-1.47); MONOCYTES PERCENT MAN 6 % (4-13); MYELOCYTE ABSOLUTE MAN 2.31 K/mm3 (0.00-0.00); MYELOCYTE PERCENT MAN 6 % (0-0); NEUTROPHILS ABSOLUTE MAN 30.89 K/mm3 (1.96-9.15); SEG NEUTROPHILS PERCENT MAN 74 % (41-73); TOTAL CELLS COUNTED 100
[2019-08-21 17:01] LABS: Hematocrit 36.5 % (37.0-53.0); Hemoglobin 12.2 g/dL (13.5-17.5)
--- NOTE | 2019-08-21 20:04 | NUR ---
SHIFT SUMMARY PT REMAINS A&O X3, VSS, ON ROOM AIR, TOLERATING PO INTAKE. HEPARIN INFUSING @ 18 UNITS/HR, ABX INFUSED PER EMAR. PT CONTINUES TO COMPLAIN OF BACK PAIN, MUSCLE CREAM & ULTRAM USED FOR RELIEF. PT HAS SAT UP IN A CHAIR MOST OF THE DAY, ATTENDS CHANGED PRN, FAMILY HAS BEEN IN TO VISIT. PT DENIES CP, STATES OCCASIONAL SOB, O2 SATS REMAIN >92% ON RA. CT OF ABD/CHEST COMPLETED TODAY. REPORT GIVEN TO NOC RN, CALL LIGHT IN REACH.
[2019-08-22 05:57] LABS: Hematocrit 35.4 % (37.0-53.0); Hemoglobin 11.9 g/dL (13.5-17.5); Mean Corpuscular HGB 32.9 pg (26.0-34.0); Mean Corpuscular HGB Conc 33.6 g/dL (31.5-36.5); Mean Corpuscular Volume 98 fL (80-100); Mean Platelet Volume 11.2 fL (9.1-12.4); Platelet Count 321 K/mm3 (150-400); RDW Coefficient Variation 14.5 % (11.7-14.2); RDW Standard Deviation 51.9 fL (35.1-46.3); Red Blood Cell Count 3.62 M/mm3 (4.30-5.90); White Blood Cell Count 37.27 K/mm3 (4.00-11.30)
[2019-08-22 06:16] LABS: Bun/Creatinine Ratio 34.3 (12.0-20.0); Calcium, Blood 8.2 mg/dL (8.5-10.1); Creatinine, Blood 1.37 mg/dL (0.60-1.20); Magnesium, Blood 2.3 mg/dL (1.6-2.4); Potassium, Blood 4.2 mmol/L (3.5-5.5)
[2019-08-22 06:22] LABS: BAND PERCENT MAN 13 % (0-8); BASOPHILS PERCENT MAN 0 % (0-2); EOSINOPHILS PERCENT MAN 0 % (0-6); LYMPHOCYTES ABSOLUTE MAN 1.86 K/mm3 (0.84-5.20); LYMPHOCYTES PERCENT MAN 5 % (21-46); METAMYELOCYTE ABSOLUTE MAN 1.11 K/mm3 (0.00-0.00); METAMYELOCYTE PERCENT MAN 3 % (0-0); MONOCYTES ABSOLUTE MAN 1.86 K/mm3 (0.16-1.47); MONOCYTES PERCENT MAN 5 % (4-13); MYELOCYTE ABSOLUTE MAN 1.86 K/mm3 (0.00-0.00); MYELOCYTE PERCENT MAN 5 % (0-0); NEUTROPHILS ABSOLUTE MAN 30.56 K/mm3 (1.96-9.15); SEG NEUTROPHILS PERCENT MAN 69 % (41-73); TOTAL CELLS COUNTED 100
--- NOTE | 2019-08-22 07:21 | NUR ---
SHIFT SUMMARY PT RESTED WELL T/O NIGHT. AAOX4. CHRONIC BACK PAIN CONTROLLED WITH X1 TRAMADOL THIS SHIFT. NO NAUSEA/EMESIS. HEPARIN GTT PER ORDERS + IV ABX INFUSING THROUGH SECONDARY IV SITE. PT MOVES SELF WELL IN BED + ENCOURAGE OOB TODAY TOLERATED. NO ACUTE CHANGES THIS SHIFT. RESTING WELL AT THIS TIME WITH CALL LIGHT IN REACH. REPORT TO DAY SHIFT RN.
--- NOTE | 2019-08-22 17:13 | NUR ---
SHIFT SUMMARY PT UP IN CHAIR MOST OF SHIFT. WORKED WITH PT/OT. CHANGING ATTENDS PRN. HEPARIN GTT + ABX PER ORDERS. PT DID HAVE AN ABD ULTRA SOUND TODAY. CARDIOLOGY HOLDING OFF ON ANGIOGRAM UNTIL WBC IMPROVES. INFECTIOUS DISEASE CONSULTED TODAY. TRAMADOL + ASPERCREME + LIDOCAINE PATCH FOR PAIN RELIEF TO BACK. PT REMAINS ALERT AND ORIENTED. VSS. USES CALL LIGHT APPROPRIATELY.
[2019-08-23 08:46] LABS: Hematocrit 35.8 % (37.0-53.0); Hemoglobin 11.9 g/dL (13.5-17.5); Mean Corpuscular HGB 32.6 pg (26.0-34.0); Mean Corpuscular HGB Conc 33.2 g/dL (31.5-36.5); Mean Corpuscular Volume 98 fL (80-100); Mean Platelet Volume 11.5 fL (9.1-12.4); Platelet Count 263 K/mm3 (150-400); RDW Coefficient Variation 14.5 % (11.7-14.2); Red Blood Cell Count 3.65 M/mm3 (4.30-5.90); White Blood Cell Count 33.34 K/mm3 (4.00-11.30)
[2019-08-23 08:58] LABS: Anion Gap 5 mmol/L (6-16); Blood Urea Nitrogen 39 mg/dL (8-24); Bun/Creatinine Ratio 33.3 (12.0-20.0); CO2, Blood 23 mmol/L (21-32); Calcium, Blood 8.2 mg/dL (8.5-10.1); Chloride, Blood 110 mmol/L (98-108); Creatinine, Blood 1.17 mg/dL (0.60-1.20); Glomerular Filtration Rate >60 (60-); Glucose, Blood 122 mg/dL (70-99); Magnesium, Blood 2.1 mg/dL (1.6-2.4); Potassium, Blood 4.5 mmol/L (3.5-5.5); Sodium, Blood 138 mmol/L (136-145)
[2019-08-23 09:08] LABS: BAND PERCENT MAN 3 % (0-8); BASOPHILS PERCENT MAN 0 % (0-2); EOSINOPHILS PERCENT MAN 3 % (0-6); LYMPHOCYTES ABSOLUTE MAN 0.66 K/mm3 (0.84-5.20); LYMPHOCYTES PERCENT MAN 2 % (21-46); METAMYELOCYTE PERCENT MAN 3 % (0-0); MONOCYTES PERCENT MAN 3 % (4-13); MYELOCYTE PERCENT MAN 3 % (0-0); NEUTROPHILS ABSOLUTE MAN 28.67 K/mm3 (1.96-9.15); SEG NEUTROPHILS PERCENT MAN 83 % (41-73); TOTAL CELLS COUNTED 100
--- NOTE | 2019-08-23 10:48 | NUR ---
DR. KELLY Pratt. TO PLACE PT NPO FOR POSSIBLE MOHIT PROCEDURE TODAY.
--- NOTE | 2019-08-23 13:49 | NUR ---
HEPARIN GTT STOPPED AT APPROX [address] KELLY Pratt. [facility] HERE TO PICK PT UP FOR PROCEDURE. PHARMACY NOTIFIED OF HEPARIN GTT STOP TIME.
--- NOTE | 2019-08-23 14:10 | NUR ---
PT BROUGHT DOWN FROM ROOM 230 BY W/C. PT FROM CHAIR TO BED, VS OBTAINED. CALL LIGHT IN REACH. AT BEDSIDE.
--- NOTE | 2019-08-23 15:19 | NUR ---
ANESTHESIA HERE FOR PROCEDURE. LACQUER COATER PRESENT. MOHIT PERFORMED WITH ANESTHESIA. PT TOLERATED PROCEDURE WELL. CONTINUE TO MONITOR.
--- NOTE | 2019-08-23 15:30 | NUR ---
PT ALERT AND TALKING WITH STAFF, BACK AT BEDSIDE. OXYGEN OFF AND SATS 98% ON RA. WILL CONTINUE TO MONITOR.
--- NOTE | 2019-08-23 15:46 | NUR ---
PT DRINKING CLEAR LIQUIDS WITHOUT DIFFICULTY SWALLOWING. PT DENIES THROAT FEELING NUMB. PT ALERT AND TALKING WITH AND STAFF.
--- NOTE | 2019-08-23 16:25 | NUR ---
SHIFT SUMMARY PT BACK FROM [facility] AFTER HAVING A MOHIT PROCEDURE. VERIFIED WITH DR. MENDOZA TO RESTART HEPARIN GTT. ABX PER ORDERS. LIDOCAINE PATCH PRN FOR CHRONIC BACK PAIN. PT/OT FOR STRENGTHENING. UP TO CHAIR MOST OF SHIFT. PT USING URINAL MORE THIS SHIFT RATHER THAN VOIDING IN ATTENDS. FAMILY AT BEDSIDE. CALL LIGHT WITHIN REACH.
--- NOTE | 2019-08-24 05:36 | NUR ---
SHIFT SUMMARY: NO ACUTE CHANGES THIS SHIFT. VSS. PT VOIDING IN URINAL WITH ASSISTANCE. HEPP GTT AND FLUIDS INFUSING PER ORDERS. GIVEN ULTRAM AND TOPICAL CREAM FOR BACK PAIN. PT RESTING MOST OF SHIFT. ЕЛЕНА PO AND DENIES N/V. DENIES SOB. LUNGS CLEAR T/O. OUT OF BED WITH 1-2 MODERATE ASSIST WITH F/WW AND GAIT BELT.
[2019-08-24 06:08] LABS: Hematocrit 32.8 % (37.0-53.0); Hemoglobin 10.9 g/dL (13.5-17.5); Mean Corpuscular HGB 32.4 pg (26.0-34.0); Mean Corpuscular HGB Conc 33.2 g/dL (31.5-36.5); Mean Corpuscular Volume 98 fL (80-100); Mean Platelet Volume 11.7 fL (9.1-12.4); Platelet Count 187 K/mm3 (150-400); RDW Coefficient Variation 14.4 % (11.7-14.2); RDW Standard Deviation 50.2 fL (35.1-46.3); Red Blood Cell Count 3.36 M/mm3 (4.30-5.90); White Blood Cell Count 25.98 K/mm3 (4.00-11.30)
[2019-08-24 06:31] LABS: Bun/Creatinine Ratio 31.2 (12.0-20.0); Creatinine, Blood 1.25 mg/dL (0.60-1.20); Potassium, Blood 4.4 mmol/L (3.5-5.5)
[2019-08-24 06:44] LABS: BAND PERCENT MAN 2 % (0-8); BASOPHILS PERCENT MAN 0 % (0-2); EOSINOPHILS PERCENT MAN 0 % (0-6); LYMPHOCYTES ABSOLUTE MAN 0.25 K/mm3 (0.84-5.20); LYMPHOCYTES PERCENT MAN 1 % (21-46); MONOCYTES ABSOLUTE MAN 0.77 K/mm3 (0.16-1.47); MONOCYTES PERCENT MAN 3 % (4-13); NEUTROPHILS ABSOLUTE MAN 24.94 K/mm3 (1.96-9.15); SEG NEUTROPHILS PERCENT MAN 94 % (41-73); TOTAL CELLS COUNTED 100
--- NOTE | 2019-08-24 14:43 | NUR ---
TELE MONITORING DISCONTINUED, BOX RETURNED TO PCU
--- NOTE | 2019-08-24 17:09 | NUR ---
HEPARIN GTT STOPPED, XARALTO TO BE STARTED WITH DINNER
--- NOTE | 2019-08-24 19:00 | NUR ---
NO ACUTE CHANGES NOTED THIS SHIFT, MEDICATED FOR BACK PAIN X1 PER EMAR. PT IS HOPING FOR DISCHARGE TO SNF ON MONDAY. HEPARIN GTT DISCONTINUED AND XARELTO STARTED. WILL CONTINUE TO MONITOR AND REPORT TO ONCOMING RN
--- NOTE | 2019-08-25 08:49 | NUR ---
SUMMARY PHONE CALL TO DR DUBOIS AT 0620 REGARDING POOR URINARY OUTPUT WITH VOIDS AT TIMES SMALL 25 ML, WITH BLADDER SCAN FOR RESIDUAL ONLY 39 ML.URINE APPEARING TURBID TO ME. HX UROSEPSIS AND TREATMENT WTIH CEFAZOLIN HAS BEEN AT LEAST 7 DAYS.WHITE COUNT HAS GONE DOWN, BUT REMAINS >25,000.PT HAS DX REAGAN/ON CHRONIC DZ WITH BUN ELEVATED, CREATININE AND GFR HAD SOME IMPROVEMENT,THEN HAVE SLIGHT RELAPSED. PT RECEIVING DIURETICS, BUT NOT CURRENT ON BNP.PT HAS HAD WEIGHT GAIN.HOWEVER, INITIAL WEIGHT LISTED WAS PT ESTIMATED AND APPEARS TO ME MOST LIKELY INACCURATE. PT HAS NON PITTING EDEMA,HOWEVER, ALSO HAS LOW PROTEIN AND ALBUMIN LEVELS.PT ALSO HAS POSSIBLE SPLENIC ABSCESS NOTED ON ABD US WHICH NOTES NEED FOR FOLLOW UP.I DID NOT RECEIVE CALL BACK PER DR DUBOIS AND ARTEM RN VERB SHE DOES NOT WISH FOR ME TO PLACE CALL TO ONCOMING HOSPITALIST, BUT PREFERS TO FOLLOW UP REGARDING THESE CONCERNS WHEN HOSPITALIST MAKES AM ROUNDS.PT SITTING UP INCHAIR AT BEDSIDE THIS AM.
--- NOTE | 2019-08-25 18:28 | NUR ---
SUMMARY: NO ACUTE CHANGE TODAY. PT VSS, A/O. CONTINUING TO RECEIVE IV ANTIBIOTICS. MEDICATED FOR BACK PAIN X1. ABLE TO SIT UP IN CHAIR THE MAJORITY OF THE DAY. REPORTS FEELING "THE BEST HE HAS EVER FELT WHILE BEING HERE". NO SAFETY CONCERNS AT THIS TIME. WILL REPORT TO SHAE MASON.
[2019-08-26 05:42] LABS: BASOPHILS ABSOLUTE AUTO 0.04 K/mm3 (0.00-0.23); BASOPHILS PERCENT AUTO 0 % (0-2); EOSINOPHILS ABSOLUTE AUTO 0.21 K/mm3 (0.00-0.68); EOSINOPHILS PERCENT AUTO 1 % (0-6); Hematocrit 33.7 % (37.0-53.0); Hemoglobin 10.8 g/dL (13.5-17.5); IMMATURE GRAN ABSOLUTE AUTO 0.25 K/mm3 (0.00-0.10); IMMATURE GRAN PERCENT AUTO 1 % (0-1); LYMPHOCYTES ABSOLUTE AUTO 1.03 K/mm3 (0.84-5.20); LYMPHOCYTES PERCENT AUTO 5 % (21-46); MONOCYTES ABSOLUTE AUTO 1.31 K/mm3 (0.16-1.47); MONOCYTES PERCENT AUTO 6 % (4-13); Mean Corpuscular HGB 31.9 pg (26.0-34.0); Mean Corpuscular Volume 99 fL (80-100); Mean Platelet Volume 11.8 fL (9.1-12.4); NEUTROPHILS ABSOLUTE AUTO 19.34 K/mm3 (1.96-9.15); NEUTROPHILS PERCENT AUTO 87 % (41-73); Platelet Count 166 K/mm3 (150-400); RDW Coefficient Variation 14.3 % (11.7-14.2); RDW Standard Deviation 52.1 fL (35.1-46.3); Red Blood Cell Count 3.39 M/mm3 (4.30-5.90); White Blood Cell Count 22.18 K/mm3 (4.00-11.30)
[2019-08-26 06:05] LABS: Calcium, Blood 8.3 mg/dL (8.5-10.1); Creatinine, Blood 1.24 mg/dL (0.60-1.20); Potassium, Blood 4.7 mmol/L (3.5-5.5)
--- NOTE | 2019-08-26 08:09 | NUR ---
SUMMARY POSSIBLE TRANSFER SOON TO SNF. NO DISTRESS TONIGHT.
--- NOTE | 2019-08-26 13:41 | NUR ---
ATTEMPTED TO GIVE REPORT TO ALFRED MINAYA RN.
--- NOTE | 2019-08-26 14:31 | NUR ---
REPORT CALLED TO [facility] PAN. MIDLINE IV DRESSING CHANGED. DISCHARGE PACKET COMPLETE AND READY TO SEND TO [facility]. PT PERSONAL BELONGINGS GATHERED AND PACKED UP AND PT WAITING FOR TRANSPORTATION.
== END 2019-08-26 14:30 | disposition home or self-care (01) | DRG 871 ==
LOC: ER 08:31 → ICUW 10:52 → SURS 10:52 → ICUW 12:20 → SURS 08-18 15:26
PROVIDERS: Emergency Medicine; Internal Medicine; Internal Medicine Critical Care Medicine; Nurse Practitioner Acute Care; ADMIT Internal Medicine
DX: A41.01 Sepsis due to Methicillin susceptible Staphylococcus aureus (principal); I21.A1 Myocardial infarction type 2; G92 Toxic encephalopathy; N17.0 Acute kidney failure with tubular necrosis; N12 Tubulo-interstitial nephritis, not specified as acute or chronic; E87.1 Hypo-osmolality and hyponatremia; N39.0 Urinary tract infection, site not specified; R65.20 Severe sepsis without septic shock; I35.0 Nonrheumatic aortic (valve) stenosis; I48.91 Unspecified atrial fibrillation; N18.3 Chronic kidney disease, stage 3 (moderate); E03.9 Hypothyroidism, unspecified; K21.9 Gastro-esophageal reflux disease without esophagitis; E78.5 Hyperlipidemia, unspecified; M10.9 Gout, unspecified; I12.9 Hypertensive chronic kidney disease with stage 1 through stage 4 chronic kidney disease, or unspecified chronic kidney disease; Z66 Do not resuscitate; K59.09 Other constipation; S99.912S Unspecified injury of left ankle, sequela; Z79.82 Long term (current) use of aspirin
CPT/HCPCS: 36415; 51702; 51798; 71045; 71250; 73610; 74018; 74176; 76700; 76705; 80048; 80053; 80069; 81001; 82550; 83605; 83735; 83880; 84100; 84145; 84439; 84443; 84481; 84484; 84550; 85014; 85018; 85025; 85027; 85610; 85651; 85730; 86140; 87040; 87077; 87086; 87147; 87186; 93005; 93010; 93306; 93312; 93325; 94640; 94760; 96361-59; 96365-59; 96375-59; 97110; 97116; 97163; 97166; 97530; 97535; 99285-25; A9270; A9270-GY; C1751; J0282; J0690; J0696; J1160; J1644; J1940; J2250; J2370; J2704; J3370; J3480; J7030; J7040; J7050; J7060; J7120; J7512

== ENCOUNTER 2020-05-06 08:37 | Inpatient (IN) | payer OTHER, MEDICARE ==
[~2020-05-06] VITALS: Ht 175.3 cm; Wt 104.5 kg
[~2020-05-06 08:37] MED LIST changes: +ASCO500 PO; +Aqua Care237 ML TOP; +CENTRUM SILVER1 EAC2 PO; +FISH OIL 1,001000 MG PO; +Garlic Oil1000 MG PO; +Gormel75 GM TOP; +MELO7.5 PO; +OXYM.05NI; +Triamcinolone A15 G3 TOP
[2020-05-06] MEDS ORDERED: XARELTO20 MG PO (08:52)
[2020-05-06] MEDS ORDERED: FURO20 PO (08:54)
[2020-05-06] MEDS ORDERED: POTA10T PO (08:54)
[2020-05-06] MEDS ORDERED: SENN187 PO (08:55)
[2020-05-06 09:04] LABS: BASOPHILS ABSOLUTE AUTO 0.07 K/mm3 (0.00-0.23); BASOPHILS PERCENT AUTO 1 % (0-2); EOSINOPHILS ABSOLUTE AUTO 0.46 K/mm3 (0.00-0.68); EOSINOPHILS PERCENT AUTO 4 % (0-6); Hematocrit 30.1 % (37.0-53.0); Hemoglobin 9.5 g/dL (13.5-17.5); IMMATURE GRAN ABSOLUTE AUTO 0.15 K/mm3 (0.00-0.10); IMMATURE GRAN PERCENT AUTO 1 % (0-1); LYMPHOCYTES ABSOLUTE AUTO 3.13 K/mm3 (0.84-5.20); LYMPHOCYTES PERCENT AUTO 26 % (21-46); MONOCYTES ABSOLUTE AUTO 0.49 K/mm3 (0.16-1.47); MONOCYTES PERCENT AUTO 4 % (4-13); Mean Corpuscular HGB Conc 31.6 g/dL (31.5-36.5); Mean Corpuscular Volume 105 fL (80-100); NEUTROPHILS PERCENT AUTO 65 % (41-73); Platelet Count 262 K/mm3 (150-400); RDW Coefficient Variation 14.1 % (11.7-14.2); RDW Standard Deviation 53.1 fL (35.1-46.3); Red Blood Cell Count 2.88 M/mm3 (4.30-5.90)
[2020-05-06 09:25] LABS: Alanine Aminotransfer (ALT/SGP 19 U/L (12-78); Albumin, Blood 3.9 g/dL (3.4-5.0); Albumin/Globulin Ratio 1.3 (0.8-1.8); Alk Phos 51 U/L (50-136); Anion Gap 10 mmol/L (6-16); Aspartate Aminotrans (AST/SGOT 13 U/L (12-37); Bilirubin, Total 0.5 mg/dL (0.1-1.0); Blood Urea Nitrogen 44 mg/dL (8-24); Bun/Creatinine Ratio 23.2 (12.0-20.0); CO2, Blood 20 mmol/L (21-32); Calcium, Blood 8.8 mg/dL (8.5-10.1); Chloride, Blood 108 mmol/L (98-108); Globulin, Blood 2.9 g/dL (2.2-4.0); Glomerular Filtration Rate 36 (60-); Glucose, Blood 217 mg/dL (70-99); Potassium, Blood 3.8 mmol/L (3.5-5.5); Sodium, Blood 138 mmol/L (136-145); Total Protein, Blood 6.8 g/dL (6.4-8.2); Troponin I <0.015 ng/mL (0.000-0.040)
[2020-05-06 12:52] LABS: Hematocrit 30.6 % (37.0-53.0); Hemoglobin 9.8 g/dL (13.5-17.5)
[2020-05-06] MEDS ORDERED: Amiodarone HCl200 MG PO (15:28)
[2020-05-06 16:04] LABS: Hematocrit 28.3 % (37.0-53.0); Hemoglobin 8.9 g/dL (13.5-17.5)
--- NOTE | 2020-05-06 17:40 | NUR ---
SHIFT ASSESSMENT PT WAS A NEW ADMIT FROM ER THIS AFTERNOON. PT A/O X4, ASNWERING QUESTIONS APPROPRIATELY IN FUL SENTENCES. PT ON RA. DENIES CP. TROPONIN HAS TRENDED UP AND HAS BEEN CALLED IN TO MAY THE PROVIDER. NS AND PROTONIX ARE INFUSING AT THIS TIME. VSS. PT RESTING WELL IN BED AT THE TIME OF THIS NOTE
[2020-05-06 21:14] LABS: Hematocrit 25.5 % (37.0-53.0); Hemoglobin 8.3 g/dL (13.5-17.5)
[2020-05-06 21:43] LABS: Source, Urine Clean Catch
[2020-05-06 21:51] LABS: Bilirubin, Urine Neg (Neg); Blood, Urine 1+ (Neg); Glucose Qualitative, Urine Neg (Neg); Ketones, Urine Neg (Neg); Leukocyte Esterase, Urine Neg (Neg); Nitrite, Urine Neg (Neg); Protein, Urine Neg (Neg); Specific Gravity, Urine 1.015 (1.003-1.022); Urobilinogen, Urine NORM (Normal)
[2020-05-06 22:03] LABS: Appearance, Urine Clear (Clear); Bacteria Not Seen /hpf; Color, Urine Yellow (P-Yellow); Red Blood Cells, Urine Rare /hpf (0-2); Squamous Epithelial Cells Not Seen /hpf (Few); White Blood Cells, Urine Not Seen /hpf (0-5)
--- NOTE | 2020-05-06 22:13 | NUR ---
CHEST PAIN PT AMBULATED TO BATHROOM AND BACK TO BED INDEPENDENTLY. PT USED CALL LIGHT TO NOTIFY OF URINE SPECIMEN COLLECTION. PT STATED HE WAS HAVING CHEST PAIN, SWEATING. TOOK PT'S BP: 79/55. PT STATED HE HAD ONLY EATEN CLEAR LIQUIDS. TOOK PT'S CBG: GLUCOSE WAS 95. TELEMETRY VOCERA'D NOTIFYING PT WAS HAVING ST DEPRESSION. SEE STRIP IN CHART. NOTIFIED CHARGE NURSE AND DID AN EKG, SEE STRIP IN CHART. PT STATED DURING EKG THAT HE WAS FEELING BETTER. TOOK BP AFTER EK/59. PT DENIES CP. NOTIFIED PT OF BEDREST/URINAL FOR VOIDING FOR NOW. CALL LIGHT IN REACH. WILL CONTINUE TO MONITOR.
[2020-05-06 22:49] LABS: Influenza A, PCR Negative (NEGATIVE); Influenza B, PCR Negative (NEGATIVE); Resp Syncytial Virus, PCR Negative (NEGATIVE); SARS-Cov-2 (COVID-19) PCR, MMC Negative (NEGATIVE)
[2020-05-07 00:28] LABS: Hematocrit 25.7 % (37.0-53.0); Hemoglobin 8.3 g/dL (13.5-17.5)
[2020-05-07 00:47] LABS: Albumin, Blood 3.4 g/dL (3.4-5.0); Albumin/Globulin Ratio 1.2 (0.8-1.8); Bilirubin, Total 0.5 mg/dL (0.1-1.0); Calcium, Blood 8.2 mg/dL (8.5-10.1); Creatinine, Blood 1.59 mg/dL (0.60-1.20); Globulin, Blood 2.8 g/dL (2.2-4.0); Potassium, Blood 3.8 mmol/L (3.5-5.5); Total Protein, Blood 6.2 g/dL (6.4-8.2)
--- NOTE | 2020-05-07 05:35 | NUR ---
SHIFT SUMMARY PT A&OX4. COOPERATIVE AND PLEASANT. SP02>92% ON RA. TELMETRY READS SR, HR 70'S. PT INDEPENDENT TO BATHROOM AT BEGINNING OF SHIFT. DURING SECOND BATHROOM TRIP OF THE NIGHT, PT HAD CP/TIGHTNESS, SEE PREVIOUS NOTE. PT NOW USING URINAL AT BEDSIDE. DENIES CP/TIGHTNESS/SOB. PT DID NOT HAVE A BM THIS SHIFT. PROTONIX INFUSING PER EMAR. PT NPO SINCE MIDNIGHT IN PREPARATION FOR AM PROCEDURE. SCDS IN PLACE. CALL LIGHT IN REACH. WILL CONTINUE TO MONITOR UNTIL END OF SHIFT.
--- NOTE | 2020-05-07 10:48 | NUR ---
AMIODERONE IS HELD PT HR 60-68, BP IS SOFT AT 102/55. WILL MONITOR
--- NOTE | 2020-05-07 12:49 | NUR ---
Spiritual care visit conducted. Patient is sitting up in bed and alert. Patient immediately tells me about his medical issues, and the plan for him over in the [facility]. Patient tells meabout his family and then talks at length about his steven. Patient explains that, because of his steven, he has peace about dying and about living but because of his human-ness he is quite nervous about the procedures he is facing today and possibly days to come. I normalize patient's experience, reinforce helpful attitudes and practices and provide pastoral residential child care counselor and prayer. Patient responds well and shows signs of reduced stress. I will continue to remain available to patient and family.
--- NOTE | 2020-05-07 15:30 | NUR ---
Ambulatory in Day SurgeryLungs clear T/O to Auscultation. History, Chart, Medications and Allergies reviewed before start of procedure.Patient confirms NPO status and agrees with scheduled surgery. Pre-Op teaching done. Pt verbalizes understanding. Patient States Post-Procedure ride home has been arranged. THE PATIENT WAS BROUGHT TO D/S FOR HIS PROCEDURE...
--- NOTE | 2020-05-07 16:06 | NUR ---
05/07/20 1606 Janny Vasquez [facility] [place]. CABRERA. SEE ANETHESIA RECORD FOR CARE
--- NOTE | 2020-05-07 18:35 | NUR ---
SHIFT NOTE PT HAS WENT FOR EGD THIS AM, RETURNED WITHOUT INTERVENTION. NO ACTIVE BLEEDING WAS NOTED DURING PROCEDURE. PT REAMINS ON BEDREST R/T CP. BOWEL PREP IS BEING HELD PER DR BOOTHE UNTIL SHE SPEAKS WITH GI ABOUT POSSIBLE TRANSFER FOR CARDIAC INTERVENTION. AT THE TIME OF THIS NOTE BOWEL PREP REMAINS HELD
[2020-05-08 04:28] LABS: Hemoglobin 8.6 g/dL (13.5-17.5); Mean Corpuscular HGB 33.1 pg (26.0-34.0); Mean Corpuscular HGB Conc 31.9 g/dL (31.5-36.5); Mean Corpuscular Volume 104 fL (80-100); Mean Platelet Volume 12.7 fL (9.1-12.4); Platelet Count 165 K/mm3 (150-400); RDW Coefficient Variation 14.3 % (11.7-14.2); RDW Standard Deviation 53.9 fL (35.1-46.3); White Blood Cell Count 15.58 K/mm3 (4.00-11.30)
[2020-05-08 04:41] LABS: Bun/Creatinine Ratio 16.4 (12.0-20.0); Calcium, Blood 8.3 mg/dL (8.5-10.1); Creatinine, Blood 1.52 mg/dL (0.60-1.20); Potassium, Blood 3.8 mmol/L (3.5-5.5)
--- NOTE | 2020-05-08 06:29 | NUR ---
SHIFT SUMMARY PATIENT ALERT AND ORIENTED. PATIENT HAD NO COMPLAINTS OF CHEST PAIN OR SHORTNESS OF BREATH. PATIENT MADE NPO AT 0000 AND KEPT ON STRICT BEDREST. PATIENT SLEPT WELL OVERNIGHT. IV PATENT AND FLUSHED. BED IN LOWEST POSITION WITH WHEELS LOCKED. CALL LIGHT WITHIN REACH. REPORT GIVEN TO ONCOMING RN.
[2020-05-08 07:41] LABS: Source, Urine Clean Catch
[2020-05-08 07:50] LABS: Appearance, Urine Clear (Clear); Bilirubin, Urine Neg (Neg); Blood, Urine Neg (Neg); Color, Urine Yellow (P-Yellow); Glucose Qualitative, Urine Neg (Neg); Ketones, Urine Neg (Neg); Leukocyte Esterase, Urine Neg (Neg); Nitrite, Urine Neg (Neg); Protein, Urine 1+ (Neg); Urobilinogen, Urine NORM (Normal)
--- NOTE | 2020-05-08 17:28 | NUR ---
SHIFT NOTE PT HAS BEEN TO ADMINISTRATIVE SERVICES DIRECTOR TODAY, THERE WAS NO INTERVENTION, SERVERE MULTI VESSEL DISEASE WAS NOTED, PT IS NOW PENDING TRANSFER TO [facility] IN [place], PT AND ARE AWARE. PRESSURES ARE SOFT POST ADMINISTRATIVE SERVICES DIRECTOR. METOPOROL AND AMIODERONE WERE HELD THIS AM FOR SOFT PRESSURES AND HR. PT REMAINS ON BEDREST. CARDIAC DIET IS ORDERERD. TR BAND IS DETENTION RECOVERED AT THIS TIME, THERE IS NO ACTIVE BLEEDING FROM TR BAND, NO HEMATOMA NOTED, ARM BOARD REMAINS IN PLACE. PT A/O X4, TALKATIVE, LAUGHING AND JOKING.
[2020-05-09 04:18] LABS: Hematocrit 26.3 % (37.0-53.0); Hemoglobin 8.3 g/dL (13.5-17.5); Mean Corpuscular HGB 33.1 pg (26.0-34.0); Mean Corpuscular HGB Conc 31.6 g/dL (31.5-36.5); Mean Corpuscular Volume 105 fL (80-100); Platelet Count 231 K/mm3 (150-400); RDW Coefficient Variation 14.5 % (11.7-14.2); RDW Standard Deviation 54.5 fL (35.1-46.3); Red Blood Cell Count 2.51 M/mm3 (4.30-5.90); White Blood Cell Count 13.04 K/mm3 (4.00-11.30)
[2020-05-09 04:41] LABS: Bun/Creatinine Ratio 15.8 (12.0-20.0); Calcium, Blood 8.3 mg/dL (8.5-10.1); Creatinine, Blood 1.52 mg/dL (0.60-1.20); Potassium, Blood 3.9 mmol/L (3.5-5.5)
--- NOTE | 2020-05-09 06:01 | NUR ---
SHIFT SUMMARY PT A&O X4. VSS. MONITOR SHOWS SR, HR 60's-70's. SPO2 > 92% ON RA. R RADIAL ACCESS SITE RECOVERY/TR BAND REMOVAL WNL W/ NO BLEEDING, NO HEMATOMA THIS SHIFT. TRANSPARENT DRESSING COVERING SITE. ARM BOARD IN PLACE. PT ON STRICT BEDREST, REMAINING IN BED T/O SHIFT. LR GTT INFUSING PER ORDERS. WILL CONTINUE TO MONITOR & PROVIDE CARE UNTIL REPORT OFF TO DAY SHIFT RN.
--- NOTE | 2020-05-09 12:55 | NUR ---
AM ASSESSMENT PT IS A/O X4, PLEASANT AFFECT. STATES NO PAIN/DISCOMFORT. PT WAITING FOR TRANSFER TO [facility] FOR TAVR SURG. PAINTER CHASSIS STATE UNKNOWN @ THIS TIME IF PT WILL TRANSFER TODAY. VSS, SIG HRT MURMUR NOTED, HHR, NSR/TELE 70'S. BEDREST CONTINUES TO BE ENCOURAGED. HE WAS UP ON BEDSIDE TO [place], UP TO BSC +BM. EAR MACHINE OPERATOR PROVIDE BEDBATH. IN FOR VISIT.
--- NOTE | 2020-05-09 15:50 | NUR ---
SUMMARY PT IS A/O X4, PLEASANT AFFECT T/O DAY. STATE NO PAIN/DISCOMFORT. HE CONTINUES TO AWAIT TRANSFER TO [facility] FOR TAVR SURG, ON WAITING LIST. BEDREST ORDERS. DR PERKINS IN TO SEE HIM THIS AM, NO NEW ORDERS. VSS. HIS WAS HERE MOST OF DAY, UPDATE PROVIDED.
--- NOTE | 2020-05-09 17:48 | NUR ---
COBRA TRANSFER DR PERKINS CALL [employer] OPER[employer] TO NOTIFY THAT [facility] HAS ROOM AVAIL, HE WILL TRANSFER TONITE. [employer]ATOR PREPARE TRANSFER PACKET. [facility] WILL PROVIDE TRANSPORTATION. REPORT CALLED TO BENNETT SYED RN. [facility] ARRIVE APPROX 1715, PT ASSISTED TO JANET. PLEASANT AFFECT, CONTINUES TO STATE NO DISCOMFORT. PT CALLED HIS & FAMILY TO INFORM OF TRANSFER.
== END 2020-05-09 17:41 | disposition short-term general hospital (02) | DRG 281 ==
LOC: ER 08:37 → PCU 11:11
PROVIDERS: Emergency Medicine; Internal Medicine Cardiovascular Disease; Nurse Practitioner Acute Care; Student in an Organized Health Care Education/Training Program; ADMIT Internal Medicine
PROC: 0DJ08ZZ Inspection of Upper Intestinal Tract, Via Natural or Artificial Opening Endoscopic (ICD-10-PCS; principal; 2020-05-07 08:15)
PROC: B2111ZZ Fluoroscopy of Multiple Coronary Arteries using Low Osmolar Contrast (ICD-10-PCS; 2020-05-08)
DX: I21.4 Non-ST elevation (NSTEMI) myocardial infarction (principal); D62 Acute posthemorrhagic anemia; N17.9 Acute kidney failure, unspecified; I35.0 Nonrheumatic aortic (valve) stenosis; E03.9 Hypothyroidism, unspecified; Z79.01 Long term (current) use of anticoagulants; Z20.828 Contact with and (suspected) exposure to other viral communicable diseases; K21.9 Gastro-esophageal reflux disease without esophagitis; I48.0 Paroxysmal atrial fibrillation; Z66 Do not resuscitate; E66.9 Obesity, unspecified; Z68.32 Body mass index [BMI] 32.0-32.9, adult; N18.30 Chronic kidney disease, stage 3 unspecified; I12.9 Hypertensive chronic kidney disease with stage 1 through stage 4 chronic kidney disease, or unspecified chronic kidney disease; I25.10 Atherosclerotic heart disease of native coronary artery without angina pectoris
CPT/HCPCS: 0241U; 36415; 71045; 71046; 76937; 80048; 80053; 81001; 82947; 83880; 84145; 84484; 85014; 85018; 85025; 85027; 85347; 87040; 93005; 93010; 93308; 93321; 93454; 93880; 96365; 96366; 99285-25; A9270; A9270-GY; C1769; C1894; C9113; J0696; J1644; J2250; J2704; J3010; J7030; J7040; J7050; J7120; Q9967

== ENCOUNTER 2022-06-30 11:06 | Day surgery (SDC) | payer OTHER ==
[~2022-06-30] VITALS: Ht 175.3 cm; Wt 105.8 kg
[~2022-06-30 11:06] MED LIST changes: +Amiodarone HCl200 MG PO; +FURO20 PO; +METO25ER PO; +POTA10T PO; +SENN187 PO; +XARELTO20 MG PO
--- NOTE | 2022-06-30 12:21 | NUR ---
06/30/22 1221 Thi [place] 1207 PLEDGET AT 1203
== END 2022-06-30 14:28 | disposition home or self-care (01) ==
LOC: ORSCSDS 11:06
PROVIDERS: Ophthalmology
PROC: 08DK3ZZ Extraction of Left Lens, Percutaneous Approach (ICD-10-PCS; principal; 2022-06-30 12:30)
DX: H25.12 Age-related nuclear cataract, left eye (principal); Z96.1 Presence of intraocular lens; I25.10 Atherosclerotic heart disease of native coronary artery without angina pectoris; I48.0 Paroxysmal atrial fibrillation; I10 Essential (primary) hypertension; E05.90 Thyrotoxicosis, unspecified without thyrotoxic crisis or storm; E66.9 Obesity, unspecified; Z68.34 Body mass index [BMI] 34.0-34.9, adult; I35.0 Nonrheumatic aortic (valve) stenosis; Z79.01 Long term (current) use of anticoagulants; Z79.82 Long term (current) use of aspirin; Z79.899 Other long term (current) drug therapy
CPT/HCPCS: J2001; J2250; J3010; J3301; J7040; V2632

== ENCOUNTER 2024-03-02 10:12 | Emergency (ER) | payer OTHER ==
[~2024-03-02] VITALS: Ht 175.3 cm; Wt 113.4 kg
[2024-03-02] MEDS ORDERED: FentaNYL Citrate 50 MCG/ML 2 ML Injection IV ONE ×2 (10:50→11:50)
[2024-03-02] MEDS ORDERED: NS 1,000 ML IV SCH (12:00)
[2024-03-02] MEDS ORDERED: Propofol 10mg/ml 20 ml Vial (Procedural) IV SCH (12:00)
[2024-03-02 13:20] VITALS: BP 135/79
[2024-03-02] MEDS ORDERED: HYDR1TAB94 PO (16:38)
== END 2024-03-02 13:38 | disposition home or self-care (01) ==
LOC: ER 10:12
DX: S43.004A Unspecified dislocation of right shoulder joint, initial encounter (principal); S00.83XA Contusion of other part of head, initial encounter; I12.9 Hypertensive chronic kidney disease with stage 1 through stage 4 chronic kidney disease, or unspecified chronic kidney disease; N18.30 Chronic kidney disease, stage 3 unspecified; E78.5 Hyperlipidemia, unspecified; E03.9 Hypothyroidism, unspecified; I48.91 Unspecified atrial fibrillation; W01.0XXA Fall on same level from slipping, tripping and stumbling without subsequent striking against object, initial encounter; Z79.899 Other long term (current) drug therapy
CPT/HCPCS: 23650; 70450; 73030; 96374-59; 99152; 99284-25; J2704; J3010; J7030

== ENCOUNTER 2024-03-02 16:24 | Emergency (ER) | payer OTHER ==
[~2024-03-02] VITALS: Ht 175.3 cm; Wt 108.9 kg
[2024-03-02] MEDS ORDERED: HYDR1TAB94 PO (16:38)
[2024-03-02] MEDS ORDERED: HYDROcodone 7.5-APAP 325 TAB PO ONE (16:40)
[2024-03-02 18:07] VITALS: BP 136/96
== END 2024-03-02 18:07 | disposition home or self-care (01) ==
LOC: ER 16:24
DX: S43.004D Unspecified dislocation of right shoulder joint, subsequent encounter (principal); I12.9 Hypertensive chronic kidney disease with stage 1 through stage 4 chronic kidney disease, or unspecified chronic kidney disease; N18.30 Chronic kidney disease, stage 3 unspecified; K21.9 Gastro-esophageal reflux disease without esophagitis; E78.5 Hyperlipidemia, unspecified; E03.9 Hypothyroidism, unspecified; I48.91 Unspecified atrial fibrillation; Z76.0 Encounter for issue of repeat prescription; Z79.899 Other long term (current) drug therapy
CPT/HCPCS: 99282; A9270

== ENCOUNTER 2024-03-04 15:05 | Inpatient (IN) | payer OTHER ==
[~2024-03-04] VITALS: Ht 175.3 cm; Wt 119.0 kg
[~2024-03-04 15:05] MED LIST changes: +HYDR1TAB94 PO
[2024-03-04 16:24] LABS: BASOPHILS ABSOLUTE AUTO 0.05 K/mm3 (0.00-0.23); BASOPHILS PERCENT AUTO 0 % (0-2); EOSINOPHILS ABSOLUTE AUTO 0.07 K/mm3 (0.00-0.68); EOSINOPHILS PERCENT AUTO 0 % (0-6); Hematocrit 24.9 % (37.0-53.0); Hemoglobin 8.4 g/dL (13.5-17.5); IMMATURE GRAN ABSOLUTE AUTO 0.22 K/mm3 (0.00-0.10); IMMATURE GRAN PERCENT AUTO 1 % (0-1); LYMPHOCYTES ABSOLUTE AUTO 1.14 K/mm3 (0.84-5.20); LYMPHOCYTES PERCENT AUTO 7 % (21-46); MONOCYTES ABSOLUTE AUTO 1.34 K/mm3 (0.16-1.47); MONOCYTES PERCENT AUTO 8 % (4-13); Mean Corpuscular HGB 32.2 pg (26.0-34.0); Mean Corpuscular HGB Conc 33.7 g/dL (31.5-36.5); Mean Corpuscular Volume 95 fL (80-100); Mean Platelet Volume 11.7 fL (9.1-12.4); NEUTROPHILS ABSOLUTE AUTO 14.57 K/mm3 (1.96-9.15); NEUTROPHILS PERCENT AUTO 84 % (41-73); Platelet Count 255 K/mm3 (150-400); RDW Coefficient Variation 14.3 % (11.7-14.2); RDW Standard Deviation 49.1 fL (35.1-46.3); Red Blood Cell Count 2.61 M/mm3 (4.30-5.90); White Blood Cell Count 17.39 K/mm3 (4.00-11.30)
[2024-03-04 16:56] LABS: Albumin, Blood 3.2 g/dL (3.4-5.0); Albumin/Globulin Ratio 1.1 (0.8-1.8); Bilirubin, Total 0.5 mg/dL (0.1-1.0); Bun/Creatinine Ratio 26.2 (12.0-20.0); Calcium, Blood 8.7 mg/dL (8.5-10.1); Creatinine, Blood 1.3 mg/dL (0.60-1.20); Potassium, Blood 4.7 mmol/L (3.5-5.5); Total Protein, Blood 6.2 g/dL (6.4-8.2)
[2024-03-04] MEDS ORDERED: OxyCODONE HCL 5 MG TAB PO ONE (18:15)
[2024-03-04] MEDS ORDERED: HYDROmorphone HCl/Pf 1MG SYR IV ONE (19:45)
[2024-03-04] MEDS ORDERED: Acetaminophen 325 MG TABLET PO PRN (20:30)
[2024-03-04] MEDS ORDERED: OxyCODONE HCL 5 MG TAB PO PRN (20:35)
[2024-03-04] MEDS ORDERED: Ondansetron HCl 2 MG / ML 2ML Vial IV PRN (20:35)
[2024-03-04] MEDS ORDERED: FLU VACC TS2024-25(6MOS UP)/PF 45 MCG/0.5 ML SYRINGE IM SCH (20:35)
[2024-03-04] MEDS ORDERED: HYDROmorphone HCl/Pf 1MG SYR IV PRN (20:35)
[2024-03-04 21:24] LABS: Hematocrit 24.9 % (37.0-53.0); Hemoglobin 8.3 g/dL (13.5-17.5)
[2024-03-04 21:33] VITALS: BP 124/73
[2024-03-04 23:28] VITALS: BP 114/71
--- NOTE | 2024-03-04 23:43 | NUR ---
Received patient- Received report from Satartia in ED. Patient arrived to PCU 19 around 2129. He was able to stand and walk to the PCU bed with staff support- gait was steady. Patient appears alert and oriented x4- but unclear on his medical diagnosis and the medications he takes on a regular basis- when asked about both. Med-rec was completed by ED nurse- and when tried to go over it again, pt states, "oh, you'd have to ask my , she does all of that, bless her heart". He also denies having Afib- when it is listed in his medical diagnosis history as having it. Patient oriented to the room and call light system. Bed alarm set. Admission screenings completed- pictures taken of patient for medical records.
[2024-03-05] VITALS (12 sets, daily range): BP systolic 97–171; BP diastolic 49–96
[2024-03-05 02:26] LABS: BASOPHILS ABSOLUTE AUTO 0.08 K/mm3 (0.00-0.23); BASOPHILS PERCENT AUTO 0 % (0-2); EOSINOPHILS ABSOLUTE AUTO 0.27 K/mm3 (0.00-0.68); EOSINOPHILS PERCENT AUTO 1 % (0-6); Hematocrit 25.7 % (37.0-53.0); Hemoglobin 8.5 g/dL (13.5-17.5); IMMATURE GRAN ABSOLUTE AUTO 0.23 K/mm3 (0.00-0.10); IMMATURE GRAN PERCENT AUTO 1 % (0-1); LYMPHOCYTES ABSOLUTE AUTO 2.01 K/mm3 (0.84-5.20); LYMPHOCYTES PERCENT AUTO 11 % (21-46); MONOCYTES ABSOLUTE AUTO 1.91 K/mm3 (0.16-1.47); MONOCYTES PERCENT AUTO 10 % (4-13); Mean Corpuscular HGB 31.8 pg (26.0-34.0); Mean Corpuscular HGB Conc 33.1 g/dL (31.5-36.5); Mean Corpuscular Volume 96 fL (80-100); Mean Platelet Volume 12.1 fL (9.1-12.4); NEUTROPHILS ABSOLUTE AUTO 14.29 K/mm3 (1.96-9.15); NEUTROPHILS PERCENT AUTO 76 % (41-73); NRBC ABSOLUTE 0.03 K/mm3 (0.00-0.02); NRBC Auto 0.2 /100 WBC (0.0-0.2); Platelet Count 278 K/mm3 (150-400); RDW Coefficient Variation 14.2 % (11.7-14.2); RDW Standard Deviation 49.6 fL (35.1-46.3); Red Blood Cell Count 2.67 M/mm3 (4.30-5.90); White Blood Cell Count 18.79 K/mm3 (4.00-11.30)
[2024-03-05 02:52] LABS: Albumin, Blood 3.3 g/dL (3.4-5.0); Bilirubin, Total 0.6 mg/dL (0.1-1.0); Bun/Creatinine Ratio 25.8 (12.0-20.0); Calcium, Blood 8.5 mg/dL (8.5-10.1); Creatinine, Blood 1.32 mg/dL (0.60-1.20); Globulin, Blood 3.2 g/dL (2.2-4.0); Magnesium, Blood 1.9 mg/dL (1.6-2.4); Potassium, Blood 4.6 mmol/L (3.5-5.5); Thyroid Stimulating Hormone 4.09 uIU/mL (0.360-4.800); Total Protein, Blood 6.5 g/dL (6.4-8.2)
[2024-03-05] MEDS ORDERED: Levothyroxine Sodium 0.05 MG Tab PO SCH (06:00)
[2024-03-05] MEDS ORDERED: Iron Dextran 50 MG / ML 2ML Vial IV ONE (08:15)
[2024-03-05 08:34] LABS: Hematocrit 24.2 % (37.0-53.0); Hemoglobin 8.1 g/dL (13.5-17.5)
[2024-03-05] MEDS ORDERED: Iron Dextran 975 MG in NS 250 ML IV ONE (10:00)
--- NOTE | 2024-03-05 13:07 | NUR ---
PT WITH ECCYMOSIS THAT HAS PROGRESSED DOWN RT ARM, INTO AXILLA, BOTH POSTERIOR AND ANTERIOR TRUNK. SKIN IS TAUGHT BUT FLUCTANT. PT REFUSES TO MOVE ARM, BUT DOES HAVE FULL ROM OF FINGERS WITH LIMITED ROM OF RT WRIST DUE TO PREVIOUS FRACTURE OF THE WRIST. RIGHT RADIAL PULSE 1+, LEFT RADIAL PULSE 3+. BILAT HANDS ARE COOL TO TOUCH, MORE SO IN THE RIGHT HAND. REPORTS SYMMETRICAL SENSATION OF FINGERS AND HANDS BILATERALLY, DENIES NUMBNESS OR TINGLING IN EITHER ARM. GOOD STRENGTH NOTED TO HAND BILATERALLY. CONSULT WAS NOT PLACED ON MY ARRIVAL FOR ORTHO, CONSULT WAS PLACED BY THIS RN, DR JESUS WAS CALLED AND WAS IN TO CONSULT WITH PT. DR JESUS SUGGESTS SLING PLACEMENT BUT PT REFUSES SLING. PT IS QUITE ANXIOUS ABOUT PAIN MEDICATIONS, BEGINS TO PANIC AND SHOUT WHEN PAIN RETURNS. VSS. IRON INFUSION WAS TOLERATED WELL WITHOUT SIGNS OF RESPIRATORY DISTRESS.
--- NOTE | 2024-03-05 16:09 | NUR ---
Upon receiving a referral for spiritual care, I visited the patient. Patient's spouse, Cary is bedside along with his son Mamadou and his spouse. Patient is pleasant and speaks about his fall, the medical plan moving forward and the loving support of his family and friends. Patient talks at length about his Taoist steven and how it is his source of hope, peace and strength. He tells me that he has peace about and is confident about his "[facility] home in [facility] He, of course, prefers to live and overcome all that he is facing. He has a strong drive for life and love for his family. I normalized his experience, and provided therapeutic listening, theological insights and prayer. Patient responded well and showed signs of being encouraged in his own beliefs. I will continue to remain available to patient and family.
--- NOTE | 2024-03-05 17:04 | NUR ---
PT HAS BEEN TREATED WITH IV AND PO PAIN MEDICATIONS ALTERNATING T/O THE DAY WHICH PT HAS TOLERATED WELL. VSS. ECCYMOSIS HAS CONTINUED TO SPREAD MORE THROUGH ANTERIOR AND POSTERIOR TRUNK, DOWN ARM AND THORUGH AXILLA. HE REPORTS THAT PAIN IS MORE TOLERABLE AT THE END OF THIS SHIFT. CONTINUES TO REFUSE SLING. ROM REMAINS PRESERVED TO FINGERS AND UNCHANGED IN WRIST WHICH IS HIS BASELINE FOR WRIST ROM. RIGHT RADIAL PULSE IS NOW 3+ WHICH IS NEARLY EQUAL TO LEFT SIDE RADIAL PULSE, COLORING OF HANDS ARE NEARLY EQUAL BETWEEN LEFT AND RIGHT, RIGHT HAND IS MORE COOL THAN LEFT BUT BILATERAL HANDS AND FEEL ARE QUITE COOL. CAP REFILL TO BILATERAL HANDS AND FEET REMAIN SLUGGISH THIS IS NOT CHANGED.
[2024-03-06 03:40] LABS: Hematocrit 23.1 % (37.0-53.0); Hemoglobin 7.6 g/dL (13.5-17.5); Mean Corpuscular HGB 32.2 pg (26.0-34.0); Mean Corpuscular HGB Conc 32.9 g/dL (31.5-36.5); Mean Corpuscular Volume 98 fL (80-100); Mean Platelet Volume 11.7 fL (9.1-12.4); NRBC ABSOLUTE 0.12 K/mm3 (0.00-0.02); NRBC Auto 0.7 /100 WBC (0.0-0.2); Platelet Count 288 K/mm3 (150-400); RDW Coefficient Variation 14.5 % (11.7-14.2); RDW Standard Deviation 50.9 fL (35.1-46.3); Red Blood Cell Count 2.36 M/mm3 (4.30-5.90); White Blood Cell Count 17.53 K/mm3 (4.00-11.30)
[2024-03-06 04:35] VITALS: BP 125/74
--- NOTE | 2024-03-06 05:53 | NUR ---
SHIFT SUMMARY ASSUMED CARE OF PT AT 1900. PT A&O4, PLEASANT AND COOPERATIVE. PT PRESENTED WITH A LARGE HEMATOMA FROM THE RIGHT AXILLARY DOWN THE ARM AND DOWN THE RIGHT LATERAL ABDOMEN. SHOULDER AND ARM SHOW SWELLING AND SKIN IS TAUGHT AND COOL TO TOUCH. PT STATES HE IS IN CONSTANT PAIN AND KEEPS ARM GAURDED. I OFFERED THE PT A SLING BUT PT REFUSED. ASSISTED PT IN REPOSITIONING AND WITH PRN MEDS TO HELP WITH PAIN. EDUCATED PT ON SCD PLACEMENT AND PT AT FIRST REFUSED BUT LATER CHANGED HIS MIND. PT'S BED IN LOWEST POSITION AND CALL LIGHT WITHIN REACH.
[2024-03-06 07:41] VITALS: BP 109/60
[2024-03-06] MEDS ORDERED: Triamcinolone Acet 0.1% Ointment 15 GM TOP PRN (08:35)
[2024-03-06] MEDS ORDERED: UREA TOP PRN (08:50)
[2024-03-06] MEDS ORDERED: Peg 400/Hypromellose/Glycerin 15 DROP/ML BTL BOTHEYES SCH (09:00)
[2024-03-06] MEDS ORDERED: Metoprolol Succinate 25 MG TABCR PO SCH (09:00)
--- NOTE | 2024-03-06 10:03 | NUR ---
ASSUMED CARE AT 0700. PT IS ALERT AND ORIENTED TO PERSON, PLACE, TIME, AND SITUATION. PT REPORTS NO CHEST PRESSURE, PAIN, OR TIGHTNESS. PT IS REPORTING CONSISTENT 10/10 PAIN IN HIS RIGHT SHOULDER, ARM, WRIST, AND HAND. TREATED PER AUG. PT ABLE TO STAND FROM BED WITH ASSISTANCE AND WALKED INDEPENDENTLY TO CHAIR FOR BREAKFAST. SCDS IN PLACE. AT BEDSIDE. SHE HAS EXPRESSED SOME CONCERNS WITH DISCHARGE HOME AND HER CAPACITY TO ASSIST HER WITH MOBILITY IN AND OUT OF BED AND ON AND OFF THE TOILET WHEN HE IS UNABLE.
[2024-03-06 12:22] LABS: Hematocrit 23.1 % (37.0-53.0); Hemoglobin 7.6 g/dL (13.5-17.5)
[2024-03-06 15:13] VITALS: BP 125/70
--- NOTE | 2024-03-06 17:56 | NUR ---
SHIFT SUMMARY PT A/O TO PERSON, PLACE, TIME, SITUATION. PLEASANT FOR DURING OF SHIFT. VITALS STABLE THROUGHOUT SHIFT. PT WAS ABLE AMBULATE TO THE CHAIR WITH PHYSICAL THERAPY THIS AFTERNOON. PT RECOMMENDING SNF UPON DISCHARGE FOR SHORT TERM REHABILITATION. PAIN IN RUE AND RIGHT RIBS REMAINED THROUGHOUT SHIFT, BUT WAS MANAGED WELL WITH MEDICATIONS PER AUG. SCD'S IN PLACE. PT RESTING COMFORTABLY IN BED AT THIS TIME.
[2024-03-06 20:23] VITALS: BP 118/73
[2024-03-06] MEDS ORDERED: Atorvastatin 10 MG Tab PO SCH (21:00)
--- NOTE | 2024-03-06 21:59 | NUR ---
NEW WOUND PHOTO PLACED IN PAPER CHART
[2024-03-06 23:17] VITALS: BP 126/68
[2024-03-07 03:23] VITALS: BP 101/56
[2024-03-07 04:13] LABS: BASOPHILS ABSOLUTE AUTO 0.11 K/mm3 (0.00-0.23); BASOPHILS PERCENT AUTO 1 % (0-2); EOSINOPHILS ABSOLUTE AUTO 0.64 K/mm3 (0.00-0.68); EOSINOPHILS PERCENT AUTO 4 % (0-6); Hemoglobin 7.3 g/dL (13.5-17.5); IMMATURE GRAN ABSOLUTE AUTO 0.57 K/mm3 (0.00-0.10); IMMATURE GRAN PERCENT AUTO 3 % (0-1); LYMPHOCYTES ABSOLUTE AUTO 1.46 K/mm3 (0.84-5.20); LYMPHOCYTES PERCENT AUTO 9 % (21-46); MONOCYTES ABSOLUTE AUTO 1.87 K/mm3 (0.16-1.47); MONOCYTES PERCENT AUTO 11 % (4-13); Mean Corpuscular HGB 32.4 pg (26.0-34.0); Mean Corpuscular HGB Conc 33.2 g/dL (31.5-36.5); Mean Corpuscular Volume 98 fL (80-100); Mean Platelet Volume 12.2 fL (9.1-12.4); NEUTROPHILS ABSOLUTE AUTO 11.94 K/mm3 (1.96-9.15); NEUTROPHILS PERCENT AUTO 72 % (41-73); NRBC ABSOLUTE 0.16 K/mm3 (0.00-0.02); Platelet Count 294 K/mm3 (150-400); RDW Coefficient Variation 14.8 % (11.7-14.2); RDW Standard Deviation 50.6 fL (35.1-46.3); Red Blood Cell Count 2.25 M/mm3 (4.30-5.90); White Blood Cell Count 16.59 K/mm3 (4.00-11.30)
--- NOTE | 2024-03-07 04:43 | NUR ---
SHIFT ASSESSMENT NEURO: A/OX4. LIMITED MOBILITY TO RUE DT PAIN AND SWELLING. MOVES ALL FINGERS CARDIAC: +1 EDEMA BLE. STRONG PULSE TO RUE GI/: WNL SKIN: NEW WOUND PHOTO PLACED IN PAPER CHART. WARM SKIN THROUGHOUT.
[2024-03-07] MEDS ORDERED: Omeprazole 20 MG CapCR PO SCH (06:00)
[2024-03-07 08:06] VITALS: BP 137/72
[2024-03-07] MEDS ORDERED: NS 250 ML IV PRN (11:00)
[2024-03-07 13:05] LABS: Hematocrit 23.4 % (37.0-53.0); Hemoglobin 7.5 g/dL (13.5-17.5)
[2024-03-07 16:49] VITALS: BP 120/68
--- NOTE | 2024-03-07 17:10 | NUR ---
END OF SHIFT PT REMAINS SURGICAL NO TELEMETRY STATUS IN PCU. PT A&O X4, PLEASANT & COOPERATIVE. VSS. SPO2 > 92% ON RA. PT C/O PAIN IN R SHOULDER & R SIDE. PT REPORTING PAIN WORSE W/ MOVEMENT. PT REQUESTING STAFF TO MOVE/LIFT/HOLD R ARM FOR REPOSITIONING & MOVING. PT ENCOURAGED TO MAKE MOVEMENTS FOR SELF MUCH PHYSICALLY ABLE. PT REFUSING SLING FOR R ARM D/T REPORT OF DISCOMFORT W/ PREVIOUS ATTEMPT AT WEARING SLEING. PT INTERMITTENTLY SLEEPING IN RM. PT S/O AT BEDSIDE. PT NOW LAUGHING W/ FAMILY IN RM.
[2024-03-07 20:12] VITALS: BP 126/58
[2024-03-08 03:41] VITALS: BP 117/61
[2024-03-08 04:07] LABS: Hemoglobin 7.4 g/dL (13.5-17.5); Mean Corpuscular HGB 32.6 pg (26.0-34.0); Mean Corpuscular HGB Conc 33.6 g/dL (31.5-36.5); Mean Corpuscular Volume 97 fL (80-100); Mean Platelet Volume 11.1 fL (9.1-12.4); NRBC ABSOLUTE 0.26 K/mm3 (0.00-0.02); NRBC Auto 1.7 /100 WBC (0.0-0.2); Platelet Count 338 K/mm3 (150-400); RDW Coefficient Variation 15.5 % (11.7-14.2); Red Blood Cell Count 2.27 M/mm3 (4.30-5.90)
[2024-03-08 04:27] LABS: Bun/Creatinine Ratio 31.6 (12.0-20.0); Calcium, Blood 8.1 mg/dL (8.5-10.1); Creatinine, Blood 1.17 mg/dL (0.60-1.20)
--- NOTE | 2024-03-08 06:03 | NUR ---
SHIFT SUMMARY SURGICAL NO TELE STATUS PATIENT ALERT, ORIENTED x3-4, CAN BE FORGETFUL AT TIMES, ABLE TO MAKE NEEDS KNOWN TO STAFF. PATIENT FREQUENTLY REMINDED TO ASSIST STAFF WITH CARE, ENCOURAGING INDEPENDENCE. BP STABLE. REMAINED ON RA WITH SPO2 >90%. RIGHT ARM CONTINUES TO BE SWOLLEN BUT NO CHANGE IN SIZE. MULTIPLE STAGES OF BRUISING T/O. MEDICATED PER EMAR FOR PAIN. PATIENT USING URINAL WITH SOME ASSISTANCE. ABLE TO STAND/AMBULATE IN ROOM WITH ASSISTANCE. NO OTHER CHANGES DURING THE NIGHT, WILL REPORT TO DAY SHIFT RN.
[2024-03-08 08:11] VITALS: BP 118/102
[2024-03-08] MEDS ORDERED: ARTIFICIAL TEAR15 M6 BOTHEYES (08:59)
[2024-03-08] MEDS ORDERED: MIRALAX17 GM PO (09:02)
[2024-03-08 11:00] VITALS: BP 124/66
--- NOTE | 2024-03-08 11:08 | NUR ---
[place] [facility] [place] WERE COL[place] AND SENT WITH. PT WAS TRANSPORTED TO [facility] BY WHEELCHAIR VIA EMS. THIS RN WENT OVERDC INSTRUCTIONS WITH PTS PER PT REQUEST. THIS RN ADDRESSED ANY QUESTIONS OR CONCERNS THAT HAD. DENIES ANY FURTHER QUESTIONS OR CONCERNS.
== END 2024-03-08 11:04 | DRG 812 ==
LOC: ER 15:05 → PCU 15:06
PROVIDERS: Emergency Medicine; Internal Medicine; ADMIT Student in an Organized Health Care Education/Training Program
DX: D62 Acute posthemorrhagic anemia (principal); I48.91 Unspecified atrial fibrillation; N18.30 Chronic kidney disease, stage 3 unspecified; E03.9 Hypothyroidism, unspecified; D72.829 Elevated white blood cell count, unspecified; I35.0 Nonrheumatic aortic (valve) stenosis; E78.5 Hyperlipidemia, unspecified; I25.10 Atherosclerotic heart disease of native coronary artery without angina pectoris; K21.9 Gastro-esophageal reflux disease without esophagitis; M10.9 Gout, unspecified; I12.9 Hypertensive chronic kidney disease with stage 1 through stage 4 chronic kidney disease, or unspecified chronic kidney disease; S42.131A Displaced fracture of coracoid process, right shoulder, initial encounter for closed fracture; S40.021A Contusion of right upper arm, initial encounter; W18.30XA Fall on same level, unspecified, initial encounter; Z79.899 Other long term (current) drug therapy; Z79.890 Hormone replacement therapy; Z79.01 Long term (current) use of anticoagulants; Z95.1 Presence of aortocoronary bypass graft; Z87.19 Personal history of other diseases of the digestive system; Z98.1 Arthrodesis status; Z98.890 Other specified postprocedural states; Z95.2 Presence of prosthetic heart valve
CPT/HCPCS: 36415; 72170; 73201; 80048; 80053; 82607; 82728; 82746; 83540; 83550; 83735; 84443; 85014; 85018; 85025; 85027; 86850; 86900; 86901; 94762; 96374-59; 96375; 96376; 97110; 97162; 97165; 97530; 99285-25; A9270; G0378; J1170; J1750; J7050; Q9967

== ENCOUNTER 2024-06-20 20:20 | Emergency (ER) | payer OTHER ==
[~2024-06-20] VITALS: Ht 177.8 cm; Wt 90.7 kg
[~2024-06-20 20:20] MED LIST changes: +ARTIFICIAL TEAR15 M6 BOTHEYES; +MIRALAX17 GM PO
[2024-06-20 20:43] VITALS: BP 143/89
[2024-06-20 21:22] LABS: BASOPHILS ABSOLUTE AUTO 0.06 K/mm3 (0.00-0.23); BASOPHILS PERCENT AUTO 1 % (0-2); EOSINOPHILS ABSOLUTE AUTO 0.24 K/mm3 (0.00-0.68); EOSINOPHILS PERCENT AUTO 2 % (0-6); Hematocrit 42.8 % (37.0-53.0); Hemoglobin 14.6 g/dL (13.5-17.5); IMMATURE GRAN PERCENT AUTO 1 % (0-1); LYMPHOCYTES ABSOLUTE AUTO 1.41 K/mm3 (0.84-5.20); LYMPHOCYTES PERCENT AUTO 12 % (21-46); MONOCYTES ABSOLUTE AUTO 0.76 K/mm3 (0.16-1.47); MONOCYTES PERCENT AUTO 6 % (4-13); Mean Corpuscular HGB 31.5 pg (26.0-34.0); Mean Corpuscular HGB Conc 34.1 g/dL (31.5-36.5); Mean Corpuscular Volume 92 fL (80-100); Mean Platelet Volume 12.6 fL (9.1-12.4); NEUTROPHILS PERCENT AUTO 79 % (41-73); Platelet Count 198 K/mm3 (150-400); RDW Coefficient Variation 13.6 % (11.7-14.2); RDW Standard Deviation 45.8 fL (35.1-46.3); Red Blood Cell Count 4.64 M/mm3 (4.30-5.90); White Blood Cell Count 11.97 K/mm3 (4.00-11.30)
[2024-06-20 21:22] LABS: Base Excess Venous -7.4 mmol/L; PCO2 Venous 35.5 mmHg (38-42); pH Blood Venous 7.33 (7.34-7.37)
[2024-06-20 21:44] LABS: Albumin, Blood 3.3 g/dL (3.4-5.0); Albumin/Globulin Ratio 0.9 (0.8-1.8); Bilirubin, Total 0.3 mg/dL (0.1-1.0); Bun/Creatinine Ratio 31.3 (12.0-20.0); Calcium, Blood 9.6 mg/dL (8.5-10.1); Creatinine, Blood 0.73 mg/dL (0.60-1.20); Globulin, Blood 3.5 g/dL (2.2-4.0); Potassium, Blood 4.1 mmol/L (3.5-5.5); Total Protein, Blood 6.8 g/dL (6.4-8.2)
== END 2024-06-20 22:24 | disposition home or self-care (01) ==
LOC: ER 20:20
PROVIDERS: Physician Assistant
DX: E11.65 Type 2 diabetes mellitus with hyperglycemia (principal); E78.00 Pure hypercholesterolemia, unspecified; Z79.899 Other long term (current) drug therapy
CPT/HCPCS: 80053; 82803; 85025; 99285

== ENCOUNTER 2024-07-12 18:52 | Emergency (ER) | payer OTHER ==
[~2024-07-12] VITALS: Ht 175.3 cm; Wt 95.2 kg
[2024-07-12] MEDS ORDERED: Ondansetron 4 MG SoluTab MM ONE (19:30)
[2024-07-12] MEDS ORDERED: OxyCODONE HCL 5 MG TAB PO ONE (19:30)
[2024-07-12] MEDS ORDERED: RX Prepack 6 Tabs Oxycodone 5mg UD ONE (20:05)
[2024-07-12] MEDS ORDERED: Colace100 MG PO (20:06)
[2024-07-12] MEDS ORDERED: ONDA4ODT MM (20:06)
[2024-07-12 20:47] VITALS: BP 138/87
== END 2024-07-12 20:47 | disposition home or self-care (01) ==
LOC: ER 18:52
DX: K86.89 Other specified diseases of pancreas (principal); Z79.899 Other long term (current) drug therapy; N18.30 Chronic kidney disease, stage 3 unspecified; K21.9 Gastro-esophageal reflux disease without esophagitis; E78.5 Hyperlipidemia, unspecified; I12.9 Hypertensive chronic kidney disease with stage 1 through stage 4 chronic kidney disease, or unspecified chronic kidney disease; I48.91 Unspecified atrial fibrillation; E03.9 Hypothyroidism, unspecified
CPT/HCPCS: 99283; A9270